=== PATIENT | male | born 1970 | race Caucasian/White ===

== ENCOUNTER 2017-06-03 18:22 | Inpatient (IN) | payer BC ==
[2017-06-03] MEDS ORDERED: Lactated Ringers 1,000 ML IV ONE ×2 (18:43→18:55)
[2017-06-03] MEDS ORDERED: Zofran 4 MG/2 ML VIAL IV ONE ×2 (18:59→23:26)
[2017-06-03] MEDS ORDERED: SUBLIMAZE 100 MCG/2 ML IV ONE ×3 (18:59→23:26)
[2017-06-03 19:03] LABS: Granulocyte Absolute (ANC) 17.24 (1.4-6.9); Hematocrit 53.3 % (42-50); Hemoglobin 19.9 gm/dl (12.5-18.0); Mean Cell Volume 82.6 fl (78-100); Mean Corpuscular Hgb Concent. 37.3 g/dl (32-36); Mean Platelet Volume 11.6 fl (6-9.5); Platelet Count 238 K/mm3 (150-450); Red Blood Count 6.45 M/mm3 (4.1-5.6); Red Cell Distribution Width 13.6 % (11.5-14.0); White Blood Count 19.1 K/mm3 (4.0-10.5)
[2017-06-03] MEDS ORDERED: SUBLIMAZE 100 MCG/2 ML ONE ×3 (19:06→23:28)
[2017-06-03] MEDS ORDERED: Zofran 4 MG/2 ML VIAL ONE ×2 (19:06→23:28)
--- NOTE | 2017-06-03 19:27 | ERPHSYRPT ---
- History of Present Illness Time Seen by Provider: 06/03/17 18:55 Source: patient Exam Limitations: no limitations Patient Subjective Stated Complaint: PT REPORTS VOMITING SUNDAY-REPORTS HE CAN NOT HOLD WATER DOWN-REPORTS HIS SUGARS HAVE BEEN RUNNING HIGH-DENIES DIARRHEA- REPORTS ABD SORENESS-DENIES FEVER-REPORTS FEELING SOB Triage Nursing Assessment: PT FLUSHED PALE ET DRY UPON ARRIVAL-RESP SLIGHTLY LABORED-NO RETRACTIONS NOTED-ABD TENDER TO PALP Physician History: FOR THE PAST 3 DAYS PT HAS HAD VOMITING OVER 20 TIMES WITHOUT BLOOD, SHORTNESS OF AIR, LOWER MID ANTERIOR CHEST DISCOMFORT AFTER VOMITING AND INTERMITTENT CRAMPING/ACHY LOWER ABDOMINAL PAIN LASTING UP TO 15 MINUTES PER EPISODE. LAST BM WAS THIS AM AND WNL. Allergies/Adverse Reactions: No Known Drug Allergies Allergy (Unverified 06/03/17 18:49) Home Medications: Alprazolam 0.5 mg [xanAX 0.5 MG] 0.5 mg PO UD 06/03/17 [History] Fenofibrate Nanocrystallized [Fenofibrate] 145 mg PO DAILY 06/03/17 [History] Insulin Aspart [NovoLOG Insulin] 60 unit SQ TID 06/03/17 [History] Insulin Detemir [Levemir] 60 unit SQ BID 06/03/17 [History] Lisinopril [Lisinopril] 10 mg PO DAILY 06/03/17 [History] Hx Tetanus, Diphtheria Vaccination/Date Given: No Hx Influenza Vaccination/Date Given: No Hx Pneumococcal Vaccination/Date Given: No Immunizations Up to Date: Yes - Review of Systems Constitutional: No Fever Respiratory: Dyspnea Cardiac: Chest Pain Abdominal/Gastrointestinal: Abdominal Pain, Vomiting, No Diarrhea All Other Systems: Reviewed and Negative - Past Medical History Pertinent Past Medical History: Yes Endocrine Medical History: Diabetes Type II - Past Surgical History Past Surgical History: Yes Musculoskeletal: Orthopedic Surgery - Social History Smoking Status: Never smoker Drug Use: none Patient Lives Alone: No - Nursing Vital Signs Nursing Vital Signs: Initial Vital Signs Temperature 98.8 F 06/03/17 18:42 Pulse Rate 110 H 06/03/17 18:42 Respiratory Rate 24 06/03/17 18:42 Blood Pressure 171/93 06/03/17 18:42 O2 Sat by Pulse Oximetry 98 06/03/17 18:42 Pain Scale Pain Intensity 3 - Physical Exam General Appearance: alert Eye Exam: PERRL/EOMI Ears, Nose, Throat Exam: dry mucous membranes, pharyngeal erythema Neck Exam: normal inspection Respiratory Exam: lungs clear Cardiovascular Exam: tachycardia Gastrointestinal/Abdomen Exam: soft, tenderness (MILD LOWER ABDOMINAL TENDERNESS ; B.S. MILDLY HYPERACTIVE AND NORMOTONIC.) Back Exam: normal range of motion Extremity Exam: normal inspection, No pedal edema Neurologic Exam: alert, cooperative Skin Exam: warm, dry SpO2 Interpretation: normal SpO2: 98 Oxygen Delivery: Room Air - Course Nursing assessment & vital signs reviewed: Yes EKG Interpreted by Me: RATE (110), Sinus Tach, NORMAL AXIS, Non-specific ST Changes - Radiology Exams Chest X-ray Interpretation: Interpreted by me, No Pneumonia - CT Exams Abdomen/Pelvis CT Interpretation: Discussed w/radiologist (NO COMPS. MODERATE PANCREATITIS WITHOUT PHLEGMON. FATTY LIVER & SIGMOID DIVERTICULOSIS. REMAINING ABD/PEL NEGATIVE.) Ordered Tests: Active Orders 24 hr Category Date Time Status Marksmanship Instructor STAT Care 06/03/17 18:42 Active Clean Catch Urine Specimen STAT Care 06/03/17 18:42 Active EKG-ER Only STAT Care 06/03/17 18:42 Active IV Insertion STAT Care 06/03/17 18:42 Active ABDOMEN AND PELVIS W/0 CONTRAS [CT] Stat Exams 06/03/17 19:01 Taken CHEST 2 VIEWS (PA AND LAT) Stat Exams 06/03/17 19:01 Taken AMYLASE Stat Lab 06/03/17 18:59 Completed BMP Stat Lab 06/03/17 22:00 Results CBC W DIFF Stat Lab 06/03/17 18:42 Completed CBC W DIFF Stat Lab 06/03/17 22:00 Completed CMP Stat Lab 06/03/17 18:42 Results CULTURE, THROAT Stat Lab 06/03/17 19:35 Received Glucose,Critical Care Urgent Lab 06/03/17 19:44 Completed LIPASE Stat Lab 06/03/17 18:42 Results Lactic Acid Stat Lab 06/03/17 19:44 Completed Lactic Acid Stat Lab 06/03/17 21:43 Ordered Lactic Acid Stat Lab 06/03/17 22:25 Results MAGNESIUM Stat Lab 06/03/17 18:42 Results Manual Differential NC Stat Lab 06/03/17 18:42 Completed [place] Screen Stat Lab 06/03/17 Completed STREP SCREEN-BETA A Stat Lab 06/03/17 19:35 Completed TROPONIN Q3H Lab 06/03/17 18:45 Completed TROPONIN Q3H Lab 06/03/17 22:00 Completed TROPONIN Q3H Lab 06/04/17 00:45 Ordered TROPONIN Q3H Lab 06/04/17 00:45 Ordered TROPONIN Q3H Lab 06/04/17 03:45 Ordered TROPONIN Q3H Lab 06/04/17 03:45 Ordered TROPONIN Q3H Lab 06/04/17 06:45 Ordered TROPONIN Q3H Lab 06/04/17 06:45 Ordered TROPONIN Q3H Lab 06/04/17 09:45 Ordered UA W/ MICROSCOPIC Stat Lab 06/03/17 18:42 Completed VENOUS BLOOD GAS Urgent Lab 06/03/17 19:44 Completed Medication Summary Discontinued Medications Generic Name Dose Route Start Last Admin Trade Name Freq PRN Reason Stop Dose Admin Al Hydrox/Mg Hydrox/Simethicone Confirm 06/03/17 22:30 Maalox Es 30 Ml Unit Dose Administered 06/03/17 22:31 Dose 30 ml .ROUTE .STK-MED ONE Fentanyl Citrate 50 mcg 06/03/17 18:59 06/03/17 19:08 Sublimaze 100 Mcg/2 Ml IV 06/03/17 19:00 50 mcg STAT ONE Administration Fentanyl Citrate Confirm 06/03/17 19:06 Sublimaze 100 Mcg/2 Ml Administered 06/03/17 19:07 Dose 100 mcg .ROUTE .STK-MED ONE Fentanyl Citrate 50 mcg 06/03/17 20:56 06/03/17 21:10 Sublimaze 100 Mcg/2 Ml IV 06/03/17 20:57 50 mcg STAT ONE Administration Fentanyl Citrate Confirm 06/03/17 21:07 Sublimaze 100 Mcg/2 Ml Administered 06/03/17 21:08 Dose 100 mcg .ROUTE .STK-MED ONE Lactated Ringer's 1,000 mls @ 999 mls/hr 06/03/17 18:43 06/03/17 18:57 Lactated Ringers IV 06/03/17 19:43 999 mls/hr .Q1H1M ONE Administration Lactated Ringer's Confirm 06/03/17 18:55 Lactated Ringers Administered 06/03/17 18:56 Dose 1,000 mls @ ud IV .STK-MED ONE Sodium Chloride 1,000 mls @ 999 mls/hr 06/03/17 19:45 06/03/17 20:30 Sodium Chloride 0.9% 1000 Ml IV 06/03/17 20:45 999 mls/hr .Q1H1M STA Administration Sodium Chloride 1,000 mls @ 999 mls/hr 06/03/17 20:10 06/03/17 21:38 Sodium Chloride 0.9% 1000 Ml IV 06/03/17 21:10 999 mls/hr .Q1H1M STA Administration Sodium Chloride Confirm 06/03/17 20:16 Sodium Chloride 0.9% 1000 Ml Administered 06/03/17 20:17 Dose 1,000 mls @ ud .ROUTE .STK-MED ONE Sodium Chloride Confirm 06/03/17 21:37 Sodium Chloride 0.9% 1000 Ml Administered 06/03/17 21:38 Dose 1,000 mls @ ud .ROUTE .STK-MED ONE Insulin Human Regular 8 unit 06/03/17 20:51 06/03/17 21:12 Novolin R IV 06/03/17 20:52 8 unit STAT ONE Administration Insulin Human Regular Confirm 06/03/17 21:10 Novolin R Administered 06/03/17 21:11 Dose 8 unit .ROUTE .STK-MED ONE Lidocaine HCl Confirm 06/03/17 22:30 Xylocaine Hcl Viscous * Administered 06/03/17 22:31 Dose 15 ml .ROUTE .STK-MED ONE Magnesium Hydroxide 45 ml 06/03/17 22:26 06/03/17 22:31 Gi Cocktail 45 Ml (Maalox/Lidocaine) PO 06/03/17 22:27 45 ml STAT ONE Administration Ondansetron HCl 4 mg 06/03/17 18:59 06/03/17 19:08 Zofran 4 Mg/2 Ml Vial IV 06/03/17 19:00 4 mg STAT ONE Administration Ondansetron HCl Confirm 06/03/17 19:06 Zofran 4 Mg/2 Ml Vial Administered 06/03/17 19:07 Dose 4 mg .ROUTE .STK-MED ONE Lab/Rad Data: Laboratory Result Diagrams 06/03/17 22:00 06/03/17 22:00 Laboratory Results 06/03/17 06/03/17 06/03/17 Range/Units Unknown 22:25 22:00 WBC (4.0-10.5) K/mm3 RBC (4.1-5.6) M/mm3 Hgb (12.5-18.0) gm/dl Hct (42-50) % MCV (78-100) fl MCH (26-32) pg MCHC (32-36) g/dl RDW (11.5-14.0) % Plt Count (150-450) K/mm3 MPV (6-9.5) fl VBG pH (7.32-7.42) VBG pCO2 at Pat Temp (42-55) mm/Hg VBG pO2 at Pat Temp (25-40) mm/Hg VBG HCO3 (22-28) meq/L VBG O2 Sat (Brie) (95-100) VBG Base Excess (-2.0-2.0) VBG Hemoglobin VBG Carboxyhemoglobin (0.0-6.9) % T HGB POC Potassium (3.5-5.1) Sodium 131 L (136-145) mEq/L Potassium 3.8 (3.5-5.1) mEq/L Chloride 98 (98-107) mEq/L Carbon Dioxide 20.2 L (21-32) mEq/L Anion Gap 17.0 H (5-15) MEQ/L BUN 13 (9-20) mg/dL Creatinine Pending (0.55-1.30) mg/dl Estimated GFR Pending ML/MIN Glucose 254 H (70-110) MG/DL Lactic Acid 2.4 H (0.4-2.0) Calcium 7.9 L (8.5-10.1) mg/dL Magnesium (1.8-2.4) mg/dL Total Bilirubin (0.2-1.0) mg/dL AST (15-37) U/L ALT Alkaline Phosphatase (46-116) U/L Troponin I (0.000-0.056) ng/ml Serum Total Protein (6.4-8.2) gm/dL Albumin (3.4-5.0) g/dL Amylase (25-115) U/L Lipase (73-393) U/L Ur Collection Type Urine Color (YELLOW) Urine Appearance (CLEAR) Urine pH (5-6) Ur Specific [place] (1.005-1.025) Urine Protein (Negative) Urine Ketones (NEGATIVE) Urine Blood (0-5) Jamel/ul Urine Nitrite (NEGATIVE) Urine Bilirubin (NEGATIVE) Urine Urobilinogen (0-1) mg/dL Ur Leukocyte Esterase (NEGATIVE) Ur Epithelial Cells (FEW) /HPF Urine Bacteria (NEGATIVE) /HPF Urine Culture Reflexed (NO) Urine Glucose (NEGATIVE) mg/dL Monoscreen NEGATIVE (Negative) Influenza Type A Ag (NEGATIVE) Influenza Type B Ag (NEGATIVE) RSV (PCR) (Negative) Streptococcus Screen (Negative) Specimen Received 06/03/17 06/03/17 06/03/17 Range/Units 22:00 22:00 19:44 WBC 17.1 H (4.0-10.5) K/mm3 RBC 5.54 (4.1-5.6) M/mm3 Hgb 16.8 (12.5-18.0) gm/dl Hct 45.7 (42-50) % MCV 82.5 (78-100) fl MCH 30.3 (26-32) pg MCHC 36.8 H (32-36) g/dl RDW 13.4 (11.5-14.0) % Plt Count 233 (150-450) K/mm3 MPV 11.8 H (6-9.5) fl VBG pH 7.28 L (7.32-7.42) VBG pCO2 at Pat Temp 32 L (42-55) mm/Hg VBG pO2 at Pat Temp 50 H (25-40) mm/Hg VBG HCO3 15.0 L* (22-28) meq/L VBG O2 Sat (Brie) 92.2 L (95-100) VBG Base Excess -10.4 L (-2.0-2.0) VBG Hemoglobin 17.1 VBG Carboxyhemoglobin 4.3 (0.0-6.9) % T HGB POC Potassium 3.6 (3.5-5.1) Sodium (136-145) mEq/L Potassium (3.5-5.1) mEq/L Chloride (98-107) mEq/L Carbon Dioxide (21-32) mEq/L Anion Gap (5-15) MEQ/L BUN (9-20) mg/dL Creatinine (0.55-1.30) mg/dl Estimated GFR ML/MIN Glucose 331 H (70-110) MG/DL Lactic Acid (0.4-2.0) Calcium (8.5-10.1) mg/dL Magnesium (1.8-2.4) mg/dL Total Bilirubin (0.2-1.0) mg/dL AST (15-37) U/L ALT Alkaline Phosphatase (46-116) U/L Troponin I < 0.017 (0.000-0.056) ng/ml Serum Total Protein (6.4-8.2) gm/dL Albumin (3.4-5.0) g/dL Amylase (25-115) U/L Lipase (73-393) U/L Ur Collection Type Urine Color (YELLOW) Urine Appearance (CLEAR) Urine pH (5-6) Ur Specific [place] (1.005-1.025) Urine Protein (Negative) Urine Ketones (NEGATIVE) Urine Blood (0-5) Jamel/ul Urine Nitrite (NEGATIVE) Urine Bilirubin (NEGATIVE) Urine Urobilinogen (0-1) mg/dL Ur Leukocyte Esterase (NEGATIVE) Ur Epithelial Cells (FEW) /HPF Urine Bacteria (NEGATIVE) /HPF Urine Culture Reflexed (NO) Urine Glucose (NEGATIVE) mg/dL Monoscreen (Negative) Influenza Type A Ag (NEGATIVE) Influenza Type B Ag (NEGATIVE) RSV (PCR) (Negative) Streptococcus Screen (Negative) Specimen Received 06/03/17 06/03/17 06/03/17 Range/Units 19:44 19:35 19:35 WBC (4.0-10.5) K/mm3 RBC (4.1-5.6) M/mm3 Hgb (12.5-18.0) gm/dl Hct (42-50) % MCV (78-100) fl MCH (26-32) pg MCHC (32-36) g/dl RDW (11.5-14.0) % Plt Count (150-450) K/mm3 MPV (6-9.5) fl VBG pH (7.32-7.42) VBG pCO2 at Pat Temp (42-55) mm/Hg VBG pO2 at Pat Temp (25-40) mm/Hg VBG HCO3 (22-28) meq/L VBG O2 Sat (Brie) (95-100) VBG Base Excess (-2.0-2.0) VBG Hemoglobin VBG Carboxyhemoglobin (0.0-6.9) % T HGB POC Potassium (3.5-5.1) Sodium (136-145) mEq/L Potassium (3.5-5.1) mEq/L Chloride (98-107) mEq/L Carbon Dioxide (21-32) mEq/L Anion Gap (5-15) MEQ/L BUN (9-20) mg/dL Creatinine (0.55-1.30) mg/dl Estimated GFR ML/MIN Glucose (70-110) MG/DL Lactic Acid 2.5 H (0.4-2.0) Calcium (8.5-10.1) mg/dL Magnesium (1.8-2.4) mg/dL Total Bilirubin (0.2-1.0) mg/dL AST (15-37) U/L ALT Alkaline Phosphatase (46-116) U/L Troponin I (0.000-0.056) ng/ml Serum Total Protein (6.4-8.2) gm/dL Albumin (3.4-5.0) g/dL Amylase (25-115) U/L Lipase (73-393) U/L Ur Collection Type Urine Color (YELLOW) Urine Appearance (CLEAR) Urine pH (5-6) Ur Specific [place] (1.005-1.025) Urine Protein (Negative) Urine Ketones (NEGATIVE) Urine Blood (0-5) Jamel/ul Urine Nitrite (NEGATIVE) Urine Bilirubin (NEGATIVE) Urine Urobilinogen (0-1) mg/dL Ur Leukocyte Esterase (NEGATIVE) Ur Epithelial Cells (FEW) /HPF Urine Bacteria (NEGATIVE) /HPF Urine Culture Reflexed (NO) Urine Glucose (NEGATIVE) mg/dL Monoscreen (Negative) Influenza Type A Ag NEGATIVE (NEGATIVE) Influenza Type B Ag NEGATIVE (NEGATIVE) RSV (PCR) NEGATIVE (Negative) Streptococcus Screen NEGATIVE (Negative) Specimen Received 06/03/17 06/03/17 06/03/17 Range/Units 18:59 18:45 18:42 WBC (4.0-10.5) K/mm3 RBC (4.1-5.6) M/mm3 Hgb (12.5-18.0) gm/dl Hct (42-50) % MCV (78-100) fl MCH (26-32) pg MCHC (32-36) g/dl RDW (11.5-14.0) % Plt Count (150-450) K/mm3 MPV (6-9.5) fl VBG pH (7.32-7.42) VBG pCO2 at Pat Temp (42-55) mm/Hg VBG pO2 at Pat Temp (25-40) mm/Hg VBG HCO3 (22-28) meq/L VBG O2 Sat (Brie) (95-100) VBG Base Excess (-2.0-2.0) VBG Hemoglobin VBG Carboxyhemoglobin (0.0-6.9) % T HGB POC Potassium (3.5-5.1) Sodium 125 L (136-145) mEq/L Potassium 3.9 (3.5-5.1) mEq/L Chloride 89 L (98-107) mEq/L Carbon Dioxide 15.8 L* (21-32) mEq/L Anion Gap 24.7 H (5-15) MEQ/L BUN 9 (9-20) mg/dL Creatinine 0.77 (0.55-1.30) mg/dl Estimated GFR > 60 ML/MIN Glucose 404 H (70-110) MG/DL Lactic Acid (0.4-2.0) Calcium 8.3 L (8.5-10.1) mg/dL Magnesium 1.9 (1.8-2.4) mg/dL Total Bilirubin 1.10 H (0.2-1.0) mg/dL AST 21 (15-37) U/L ALT Pending Alkaline Phosphatase 105 (46-116) U/L Troponin I < 0.017 (0.000-0.056) ng/ml Serum Total Protein 8.7 H (6.4-8.2) gm/dL Albumin 3.3 L (3.4-5.0) g/dL Amylase 181 H (25-115) U/L Lipase 1377 H (73-393) U/L Ur Collection Type Urine Color (YELLOW) Urine Appearance (CLEAR) Urine pH (5-6) Ur Specific [place] (1.005-1.025) Urine Protein (Negative) Urine Ketones (NEGATIVE) Urine Blood (0-5) Jamel/ul Urine Nitrite (NEGATIVE) Urine Bilirubin (NEGATIVE) Urine Urobilinogen (0-1) mg/dL Ur Leukocyte Esterase (NEGATIVE) Ur Epithelial Cells (FEW) /HPF Urine Bacteria (NEGATIVE) /HPF Urine Culture Reflexed (NO) Urine Glucose (NEGATIVE) mg/dL Monoscreen (Negative) Influenza Type A Ag (NEGATIVE) Influenza Type B Ag (NEGATIVE) RSV (PCR) (Negative) Streptococcus Screen (Negative) Specimen Received 06/03/17 06/03/17 Range/Units 18:42 18:42 WBC 19.1 H (4.0-10.5) K/mm3 RBC 6.45 H* (4.1-5.6) M/mm3 Hgb 19.9 H (12.5-18.0) gm/dl Hct 53.3 H (42-50) % MCV 82.6 (78-100) fl MCH 30.8 (26-32) pg MCHC 37.3 H (32-36) g/dl RDW 13.6 (11.5-14.0) % Plt Count 238 (150-450) K/mm3 MPV 11.6 H (6-9.5) fl VBG pH (7.32-7.42) VBG pCO2 at Pat Temp (42-55) mm/Hg VBG pO2 at Pat Temp (25-40) mm/Hg VBG HCO3 (22-28) meq/L VBG O2 Sat ([place]rie) (95-100) VBG Base Excess (-2.0-2.0) VBG Hemoglobin VBG Carboxyhemoglobin (0.0-6.9) % T HGB POC Potassium (3.5-5.1) Sodium (136-145) mEq/L Potassium (3.5-5.1) mEq/L Chloride (98-107) mEq/L Carbon Dioxide (21-32) mEq/L Anion Gap (5-15) MEQ/L BUN (9-20) mg/dL Creatinine (0.55-1.30) mg/dl Estimated GFR ML/MIN Glucose (70-110) MG/DL Lactic Acid (0.4-2.0) Calcium (8.5-10.1) mg/dL Magnesium (1.8-2.4) mg/dL Total Bilirubin (0.2-1.0) mg/dL AST (15-37) U/L ALT Alkaline Phosphatase (46-116) U/L Troponin I (0.000-0.056) ng/ml Serum Total Protein (6.4-8.2) gm/dL Albumin (3.4-5.0) g/dL Amylase (25-115) U/L Lipase (73-393) U/L Ur Collection Type CLEAN CATCH Urine Color YELLOW (YELLOW) Urine Appearance CLEAR (CLEAR) Urine pH 5.0 (5-6) Ur Specific [place] 1.025 (1.005-1.025) Urine Protein TRACE (Negative) Urine Ketones LARGE (NEGATIVE) Urine Blood NEGATIVE (0-5) Jamel/ul Urine Nitrite NEGATIVE (NEGATIVE) Urine Bilirubin NEGATIVE (NEGATIVE) Urine Urobilinogen NORMAL (0-1) mg/dL Ur Leukocyte Esterase NEGATIVE (NEGATIVE) Ur Epithelial Cells RARE (FEW) /HPF Urine Bacteria RARE (NEGATIVE) /HPF Urine Culture Reflexed NO (NO) Urine Glucose 500 (NEGATIVE) mg/dL Monoscreen (Negative) Influenza Type A Ag (NEGATIVE) Influenza Type B Ag (NEGATIVE) RSV (PCR) (Negative) Streptococcus Screen (Negative) Specimen Received 06/03/17 1900 - Progress Discussed with DrNina: Sukhwinder (OBS - [id number]) - Departure Time of Disposition: 23:12 Departure Disposition: Observation Clinical Impression: ACUTE PANCREATITIS, ELEVATED LACTIC ACID, DM, DEHYDRATION Condition: Stable Critical Care Time: No Referrals: SONIA MAY [Primary Care Provider] -
[2017-06-03 19:37] LABS: ALKALINE PHOSPHATASE 105 U/L (46-116); ANION GAP 24.7 MEQ/L (5-15); CHLORIDE 89 mEq/L (98-107); Calcium 8.3 mg/dL (8.5-10.1); Glucose 404 MG/DL (70-110); LIPASE 1377 U/L (73-393); MAGNESIUM 1.9 mg/dL (1.8-2.4); Potassium 3.9 mEq/L (3.5-5.1); SODIUM 125 mEq/L (136-145)
[2017-06-03 19:45] LABS: VBG BASE EXCESS -10.4 (-2.0-2.0); VBG CARBOXYHEMOGLOBIN 4.3 % T HGB (0.0-6.9); VBG HEMOGLOBIN 17.1; VBG O2 SATURATION 92.2 (95-100); VBG POTASSIUM 3.6 (3.5-5.1); VBG pH 7.28 (7.32-7.42)
[2017-06-03] MEDS ORDERED: Sodium Chloride 0.9% 1000 ML 1,000 ML IV STA ×2 (19:45→20:10)
[2017-06-03 19:47] LABS: Lactic Acid 2.5 (0.4-2.0)
[2017-06-03 20:02] LABS: ALBUMIN 3.3 g/dL (3.4-5.0); BLOOD UREA NITROGEN 9 mg/dL (9-20)
[2017-06-03 20:06] LABS: Mean Corpuscular Hemoglobin 30.8 pg (26-32)
[2017-06-03 20:16] LABS: Creatinine 1 0.77 mg/dl (0.55-1.30); EST GLOMERULAR FILTRATION RATE > 60 ML/MIN; Total Protein 8.7 gm/dL (6.4-8.2)
[2017-06-03] MEDS ORDERED: Sodium Chloride 0.9% 1000 ML 1,000 ML ONE ×2 (20:16→21:37)
[2017-06-03 20:41] LABS: SGOT/AST 21 U/L (15-37)
[2017-06-03 20:50] LABS: Carbon Dioxide 15.8 mEq/L (21-32)
[2017-06-03] MEDS ORDERED: NovoLIN R IV ONE (20:51)
[2017-06-03] MEDS ORDERED: NovoLIN R ONE (21:10)
[2017-06-03 21:22] LABS: INFLUENZA A NEGATIVE (NEGATIVE); INFLUENZA B NEGATIVE (NEGATIVE); RESPIRATORY SYNCTIAL VIRUS NEGATIVE (Negative)
[2017-06-03 21:41] LABS: Appearance CLEAR (CLEAR); Leukocyte Esterase NEGATIVE (NEGATIVE); Nitrite NEGATIVE (NEGATIVE); Specific Gravity 1.025 (1.005-1.025)
[2017-06-03 21:42] LABS: Bacteria RARE /HPF (NEGATIVE); Bilirubin NEGATIVE (NEGATIVE); Blood NEGATIVE Ery/ul (0-5); Epithelial Cells RARE /HPF (FEW); Glucose 500 mg/dL (NEGATIVE); Ketones LARGE (NEGATIVE); Protein,Urine Dip TRACE (Negative); Urobilinogen NORMAL mg/dL (0-1)
[2017-06-03 22:06] LABS: Granulocyte Absolute (ANC) 14.74 (1.4-6.9); Hematocrit 45.7 % (42-50); Hemoglobin 16.8 gm/dl (12.5-18.0); Mean Cell Volume 82.5 fl (78-100); Mean Corpuscular Hemoglobin 30.3 pg (26-32); Mean Corpuscular Hgb Concent. 36.8 g/dl (32-36); Mean Platelet Volume 11.8 fl (6-9.5); Platelet Count 233 K/mm3 (150-450); Red Blood Count 5.54 M/mm3 (4.1-5.6); Red Cell Distribution Width 13.4 % (11.5-14.0); White Blood Count 17.1 K/mm3 (4.0-10.5)
[2017-06-03 22:25] LABS: Lactic Acid 2.4 (0.4-2.0)
[2017-06-03] MEDS ORDERED: GI COCKTAIL 45 ML (Maalox/Lidocaine) PO ONE (22:26)
[2017-06-03 22:28] LABS: BLOOD UREA NITROGEN 13 mg/dL (9-20); CHLORIDE 98 mEq/L (98-107); Calcium 7.9 mg/dL (8.5-10.1); Carbon Dioxide 20.2 mEq/L (21-32); Glucose 254 MG/DL (70-110); Potassium 3.8 mEq/L (3.5-5.1); SODIUM 131 mEq/L (136-145)
[2017-06-03] MEDS ORDERED: XYLOCAINE HCl Viscous ONE (22:30)
[2017-06-03] MEDS ORDERED: MAALOX ES 30 ML UNIT DOSE ONE (22:30)
[2017-06-04] LABS: Creatinine 1 0.65 mg/dl (0.55-1.30); EST GLOMERULAR FILTRATION RATE > 60 ML/MIN
[2017-06-04] MEDS ORDERED: NovoLOG Insulin SQ PRN (00:04)
[2017-06-04] MEDS ORDERED: Zofran 4 MG/2 ML VIAL IV PRN (00:04)
[2017-06-04] MEDS ORDERED: MORPHINE SULFATE 4 MG INJ IV PRN (00:04)
[2017-06-04] MEDS: Sodium Chloride 0.9% 1000 ML 1,000 ML IV SCH ×4 (00:31→18:49)
[2017-06-04 01:10] LABS: SGPT/ALT 15 U/L (12-78)
[2017-06-04] MEDS ORDERED: Phenergan 25 MG INJ IV PRN (01:23)
[2017-06-04] MEDS: Zofran 4 MG/2 ML VIAL IV PRN ×3 (01:27→10:54)
[2017-06-04 01:49] LABS: BAND 4 % (0.0-2.0); Eosinophil 1 % (0.00-3.0); Lymphocytes 8 % (24-44); Monocyte 5 % (0.0-12.0); Neutrophils 82 % (36.-66.); Total Cells Counted 100
[2017-06-04 01:50] LABS: Platelet Estimate NORMAL (NORMAL)
[2017-06-04 05:37] LABS: Granulocyte Absolute (ANC) 10.69 (1.4-6.9); Hematocrit 44.6 % (42-50); Hemoglobin 15.9 gm/dl (12.5-18.0); Mean Cell Volume 83.1 fl (78-100); Mean Corpuscular Hemoglobin 29.6 pg (26-32); Mean Corpuscular Hgb Concent. 35.7 g/dl (32-36); Mean Platelet Volume 11.9 fl (6-9.5); Platelet Count 184 K/mm3 (150-450); Red Blood Count 5.37 M/mm3 (4.1-5.6); Red Cell Distribution Width 13.3 % (11.5-14.0); White Blood Count 12.7 K/mm3 (4.0-10.5)
[2017-06-04] MEDS ORDERED: MORPHINE SULFATE 2 MG INJ ONE (05:44)
[2017-06-04 06:11] LABS: ALKALINE PHOSPHATASE 73 U/L (46-116); AMYLASE 98 U/L (25-115); ANION GAP 17.4 MEQ/L (5-15); BLOOD UREA NITROGEN 13 mg/dL (9-20); CHLORIDE 100 mEq/L (98-107); Calcium 7.8 mg/dL (8.5-10.1); Carbon Dioxide 19.8 mEq/L (21-32); Creatinine 1 0.76 mg/dl (0.55-1.30); EST GLOMERULAR FILTRATION RATE > 60 ML/MIN; Glucose 250 MG/DL (70-110); LIPASE 760 U/L (73-393); SODIUM 133 mEq/L (136-145)
[2017-06-04 06:28] LABS: SGOT/AST 37 U/L (15-37)
[2017-06-04] MEDS ORDERED: MORPHINE SULFATE 2 MG INJ IV PRN (06:48)
[2017-06-04 08:09] LABS: BAND 18 % (0.0-2.0); Lymphocytes 10 % (24-44); Monocyte 4 % (0.0-12.0); Neutrophils 68 % (36.-66.); Platelet Estimate NORMAL (NORMAL); Total Cells Counted 100
--- NOTE | 2017-06-04 08:23 | PCM.HP ---
History of Present Illness - Chief Complaint Chief Complaint: Acute Pancreatitis, Dehydration, Elevated Lactic Acid, DM Date: 06/04/17 History of Present Illness: is a 46 year old male. who began having left upper quadrant pain epigastric pain radiating into the back and nausea and vomiting sunday it progressively worsened and was unable to keep anything down. He thought he had the flu so was trying to drink liquids and ride it out at home but eventually the pain and vomiting became too much and he came to the ED. he does have previous hx of pancreatitis at least 2 times. He does not drink alcohol. He has not been diagnosed with gallbladder disorders in the past. he is unsure of the etiology of the pancreatitis in the past. - Review of Systems Constitutional: Chills, Fatigue, No Fever Eyes: No Symptoms Ears, Nose, & Throat: No Symptoms Respiratory: No Cough, No Short Of Breath Cardiac: No Chest Pain, No Edema, No Syncope Abdominal/Gastrointestinal: Abdominal Pain, Nausea, Vomiting, No Diarrhea Genitourinary Symptoms: No Dysuria Musculoskeletal: Back Pain, No Neck Pain Skin: No Rash Neurological: Dizziness, No Focal Weakness, No Sensory Changes Psychological: No Symptoms Endocrine: No Symptoms Hematologic/Lymphatic: No Symptoms Immunological/Allergic: No Symptoms Medications & Allergies Home Medications: Home Medication List Alprazolam 0.5 mg [xanAX 0.5 MG] 0.5 mg PO DAILY PRN PRN 06/03/17 [ History Confirmed 06/04/17] Fenofibrate Nanocrystallized [Fenofibrate] 145 mg PO DAILY 06/03/17 [History Confirmed 06/03/17] Insulin Aspart [NovoLOG Insulin] 100 unit SQ TID 06/03/17 [History Confirmed 06/04/17] Insulin Detemir [Levemir] 60 unit SQ BID 06/03/17 [History Confirmed 06/04/17] Lisinopril [Lisinopril] 10 mg PO DAILY 06/03/17 [History Confirmed 06/03/17] Atorvastatin Calcium 40 mg PO DAILY 06/04/17 [History Confirmed 06/04/17] Cyclobenzaprine HCl 10 mg [Cyclobenzaprine 10 MG] 10 mg PO DAILY PRN PRN 06/04/17 [History Confirmed 06/04/17] Naproxen Sodium 220 mg [Aleve 220 MG] 220 mg PO BID PRN PRN 06/04/17 [ History Confirmed 06/04/17] Allergies/Adverse Reactions: Allergies Allergy/AdvReac Type Severity Reaction Status Date / Time No Known Drug Allergies Allergy Unverified 06/03/17 18:49 - Past Medical History Past Medical History: Yes Endocrine Medical History: Diabetes Type II Musculoskelatal History: Other GI Medical History: Hernia, Pancreatitis Comment: 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 - Past Surgical History Past Surgical History: Yes Musculskeletal Surgical Hx: Orthopedic Surgery Other Surgical History: Surgery R foot, fxs - Social History Smoking Status: Former smoker Alcohol: None Drug Use: none - Physical Exam Vital Signs: Vital Signs - 24 hr Temp Pulse Resp BP Pulse Ox 06/04/17 07:49 98.9 F 91 H 20 124/74 96 06/04/17 04:00 99.0 F 94 H 18 149/90 96 06/04/17 00:36 99.6 F 99 H 20 124/77 92 L 06/03/17 23:59 99.6 F 99 H 20 124/77 92 L 06/03/17 23:12 98 06/03/17 21:50 103 H 06/03/17 21:40 103 H 16 123/77 06/03/17 20:50 103 H 12 143/86 06/03/17 20:33 107 H 16 143/86 06/03/17 19:50 105 H 16 149/87 94 L 06/03/17 19:13 112 H 16 138/92 06/03/17 18:42 98.8 F 110 H 24 171/93 98 General Appearance: mild distress, alert Neurologic Exam: alert, oriented x 3, cooperative, normal mood/affect, nml cerebellar function, sensation nml, No motor deficits Eye Exam: PERRL/EOMI, eyes nml inspection Ears, Nose, Throat Exam: normal ENT inspection, pharynx normal, moist mucous membranes Neck Exam: normal inspection, non-tender, supple, full range of motion Respiratory Exam: normal breath sounds, lungs clear, No respiratory distress Cardiovascular Exam: regular rate/rhythm, normal heart sounds, normal peripheral pulses Gastrointestinal/Abdomen Exam: soft, normal bowel sounds, tenderness ( epigastric and left upper quadrant), No distention, No mass, No guarding Back Exam: No CVA tenderness, No vertebral tenderness Extremity Exam: normal inspection, normal range of motion Skin Exam: normal color, warm, dry, No rash Lymphatic Exam: No adenopathy Results - Labs Lab/Micro Results: Accuchecks Date 06/04/17 Time 07:02 Accucheck Value: 210 Lab Results-Last 24 Hours 06/03/17 06/04/17 06/04/17 Range/Units Unknown 00:45 04:00 WBC (4.0-10.5) K/mm3 RBC (4.1-5.6) M/mm3 Hgb (12.5-18.0) gm/dl Hct (42-50) % MCV (78-100) fl MCH (26-32) pg MCHC (32-36) g/dl RDW (11.5-14.0) % Plt Count (150-450) K/mm3 MPV (6-9.5) fl Segmented Neutrophils (36.-66.) % Band Neutrophils (0.0-2.0) % Lymphocytes (Manual) (24-44) % Monocytes (Manual) (0.0-12.0) % Differential Comment Platelet Estimate (NORMAL) Sodium (136-145) mEq/L Potassium (3.5-5.1) mEq/L Chloride (98-107) mEq/L Carbon Dioxide (21-32) mEq/L Anion Gap (5-15) MEQ/L BUN (9-20) mg/dL Creatinine (0.55-1.30) mg/dl Estimated GFR ML/MIN Glucose (70-110) MG/DL Lactic Acid (0.4-2.0) Calcium (8.5-10.1) mg/dL Total Bilirubin (0.2-1.0) mg/dL AST (15-37) U/L ALT (12-78) U/L Alkaline Phosphatase (46-116) U/L Troponin I < 0.017 < 0.017 (0.000-0.056) ng/ml Serum Total Protein (6.4-8.2) gm/dL Albumin (3.4-5.0) g/dL Amylase (25-115) U/L Lipase (73-393) U/L Monoscreen NEGATIVE (Negative) 06/04/17 06/04/17 06/04/17 Range/Units 04:00 04:00 04:54 WBC 12.7 H (4.0-10.5) K/mm3 RBC 5.37 (4.1-5.6) M/mm3 Hgb 15.9 (12.5-18.0) gm/dl Hct 44.6 (42-50) % MCV 83.1 (78-100) fl MCH 29.6 (26-32) pg MCHC 35.7 (32-36) g/dl RDW 13.3 (11.5-14.0) % Plt Count 184 (150-450) K/mm3 MPV 11.9 H (6-9.5) fl Segmented Neutrophils 68 H (36.-66.) % Band Neutrophils 18 H (0.0-2.0) % Lymphocytes (Manual) 10 L (24-44) % Monocytes (Manual) 4 (0.0-12.0) % Differential Comment NORMAL Platelet Estimate NORMAL (NORMAL) Sodium 133 L (136-145) mEq/L Potassium 4.0 (3.5-5.1) mEq/L Chloride 100 (98-107) mEq/L Carbon Dioxide 19.8 L (21-32) mEq/L Anion Gap 17.4 H (5-15) MEQ/L BUN 13 (9-20) mg/dL Creatinine 0.76 (0.55-1.30) mg/dl Estimated GFR > 60 ML/MIN Glucose 250 H (70-110) MG/DL Lactic Acid 0.9 (0.4-2.0) Calcium 7.8 L (8.5-10.1) mg/dL Total Bilirubin 0.70 (0.2-1.0) mg/dL AST 37 (15-37) U/L ALT (12-78) U/L Alkaline Phosphatase 73 (46-116) U/L Troponin I (0.000-0.056) ng/ml Serum Total Protein (6.4-8.2) gm/dL Albumin 3.0 L (3.4-5.0) g/dL Amylase 98 (25-115) U/L Lipase 760 H (73-393) U/L Monoscreen (Negative) 06/04/17 Range/Units 06:50 WBC (4.0-10.5) K/mm3 RBC (4.1-5.6) M/mm3 Hgb (12.5-18.0) gm/dl Hct (42-50) % MCV (78-100) fl MCH (26-32) pg MCHC (32-36) g/dl RDW (11.5-14.0) % Plt Count (150-450) K/mm3 MPV (6-9.5) fl Segmented Neutrophils (36.-66.) % Band Neutrophils (0.0-2.0) % Lymphocytes (Manual) (24-44) % Monocytes (Manual) (0.0-12.0) % Differential Comment Platelet Estimate (NORMAL) Sodium (136-145) mEq/L Potassium (3.5-5.1) mEq/L Chloride (98-107) mEq/L Carbon Dioxide (21-32) mEq/L Anion Gap (5-15) MEQ/L BUN (9-20) mg/dL Creatinine (0.55-1.30) mg/dl Estimated GFR ML/MIN Glucose (70-110) MG/DL Lactic Acid (0.4-2.0) Calcium (8.5-10.1) mg/dL Total Bilirubin (0.2-1.0) mg/dL AST (15-37) U/L ALT (12-78) U/L Alkaline Phosphatase (46-116) U/L Troponin I < 0.017 (0.000-0.056) ng/ml Serum Total Protein (6.4-8.2) gm/dL Albumin (3.4-5.0) g/dL Amylase (25-115) U/L Lipase (73-393) U/L Monoscreen (Negative) Accuchecks Date 06/04/17 Time 07:02 Accucheck Value: 210 - Radiology Impressions Radiology Exams & Impressions: Radiology Procedures Category Date Time Status Ultrasound Liver or Spleen [LIVER OR SPLEEN] [US] Exams 06/04/17 Ordered Routine Assessment/Plan (1) Pancreatitis Current Visit: Yes Status: Acute Qualifiers: Chronicity: acute Assessment & Plan: Complicated by mild improving with fluid rehydration and sliding scale insulin this am check gallbladder ultrasound npo iv fluids repeat vbg this am and repeat bmp will give 1/2 his home dose of lantus and continue sliding scale correction of sugars q4h his gap is improving check am lipids continue pain control afebrile currently and not on antibiotics if develops fever >100.4 check cxr, blood cultures, ua, urine cultures. Code(s): K85.90 - ACUTE PANCREATITIS WITHOUT NECROSIS OR INFECTION, UNSP (2) Diabetic ketoacidosis Current Visit: Yes Status: Acute Code(s): E13.10 - OTH DIABETES MELLITUS WITH KETOACIDOSIS WITHOUT COMA
--- NOTE | 2017-06-04 08:38 | XRAY ---
Indication: Nausea, vomiting, and tachycardia. Comparison: None PA/lateral chest hyperinflated and clear. Heart is not enlarged. Bony thorax intact with old left 5th-7th rib fractures. Impression: Nonacute chest.
--- NOTE | 2017-06-04 08:40 | XRAY ---
Indication: Nausea and vomiting. Multiple contiguous axial images obtained through the abdomen and pelvis without contrast as ordered. Comparison: None Lung bases are clear. Heart is not enlarged. Pancreatic body and tail are prominent with moderate peripancreatic stranding favoring acute pancreatitis. No walled off fluid collection or free air. Diffuse fatty liver. Noncontrasted stomach and bowel loops appear nonobstructed. Normal appendix. Minimal sigmoid diverticulosis. Remaining liver, gallbladder, spleen, adrenal glands, kidneys, ureters, bladder, and aorta appear unremarkable for noncontrast exam. Osseous structures intact with mild lower lumbar degenerative changes. Small fatty bilateral inguinal hernias. Impression: 1. CT findings favoring acute pancreatitis as detailed. 2. Fatty liver, sigmoid diverticulosis, and fatty bilateral inguinal hernias. CT DI 20.32
[2017-06-04] MEDS ORDERED: Cyclobenzaprine 10 MG PO PRN (09:27)
--- NOTE | 2017-06-04 09:31 | XRAY ---
Indication: Pancreatitis. Two-dimensional right upper quadrant abdominal sonogram performed. Comparison: None Gallbladder normally distended without gallstones, wall thickening, or pericholecystic fluid. Common bile duct measures 5.1 mm. No intrahepatic biliary distention. Diffusely fatty echogenic liver without focal solid/cystic mass or ascites. Body of the pancreas demonstrates hypoechogenicity favoring edema. No peripancreatic fluid collection. Right kidney measures 12.2 x 5.7 x 6.2 cm and appears sonographically normal. Impression: 1. Pancreatic edema favoring known pancreatitis. No suspicious fluid collection or phlegmon. 2. Diffuse fatty liver. 3. Remaining right upper quadrant sonogram is negative.
[2017-06-04] MEDS: PROTONIX 40 MG IV IV SCH (10:48)
[2017-06-04] MEDS: Lantus Insulin SQ SCH (10:50)
[2017-06-04 12:06] LABS: VBG BASE EXCESS -2.5 (-2.0-2.0); VBG CARBOXYHEMOGLOBIN 3.4 % T HGB (0.0-6.9); VBG HCO3- 22.5 meq/L (22-28); VBG HEMOGLOBIN 15.5; VBG O2 SATURATION 89.7 (95-100); VBG POTASSIUM 3.7 (3.5-5.1); VBG pH 7.37 (7.32-7.42)
[2017-06-04 12:42] LABS: ANION GAP 18.8 MEQ/L (5-15); BLOOD UREA NITROGEN 13 mg/dL (9-20); CHLORIDE 101 mEq/L (98-107); Calcium 8.1 mg/dL (8.5-10.1); Carbon Dioxide 19.3 mEq/L (21-32); Creatinine 1 0.79 mg/dl (0.55-1.30); EST GLOMERULAR FILTRATION RATE > 60 ML/MIN; Glucose 226 MG/DL (70-110); Potassium 3.7 mEq/L (3.5-5.1); SODIUM 135 mEq/L (136-145)
[2017-06-04] MEDS ORDERED: LIPITOR 40MG PO SCH (22:00)
[2017-06-05] MEDS ORDERED: TYLENOL 325 MG PO PRN (01:29)
[2017-06-05] MEDS: Sodium Chloride 0.9% 1000 ML 1,000 ML IV SCH ×4 (01:32→20:12)
[2017-06-05] MEDS: xanAX 0.5 MG PO PRN ×2 (01:40→23:20)
[2017-06-05 05:51] LABS: Hemoglobin 12.8 gm/dl (12.5-18.0); Mean Corpuscular Hgb Concent. 33.7 g/dl (32-36); Mean Platelet Volume 11.1 fl (6-9.5); Platelet Count 135 K/mm3 (150-450); Red Blood Count 4.42 M/mm3 (4.1-5.6); Red Cell Distribution Width 13.8 % (11.5-14.0); White Blood Count 8.8 K/mm3 (4.0-10.5)
[2017-06-05 06:30] LABS: ALBUMIN 2.4 g/dL (3.4-5.0); ALKALINE PHOSPHATASE 55 U/L (46-116); ANION GAP 7.8 MEQ/L (5-15); BLOOD UREA NITROGEN 11 mg/dL (9-20); CHLORIDE 106 mEq/L (98-107); Carbon Dioxide 26.3 mEq/L (21-32); Cholesterol 333 mg/dL (100-200); Creatinine 1 0.72 mg/dl (0.55-1.30); EST GLOMERULAR FILTRATION RATE > 60 ML/MIN; Glucose 143 MG/DL (70-110); HDL CHOLESTEROL 26 mg/dL (35-60); LDL, DIRECT 89 mg/dL (5-99); LIPASE 491 U/L (73-393); Potassium 3.2 mEq/L (3.5-5.1); Risk Ratio 12.8; SODIUM 137 mEq/L (136-145); Total Protein 5.9 gm/dL (6.4-8.2)
[2017-06-05 06:40] LABS: SGOT/AST 14 U/L (15-37)
[2017-06-05 07:20] LABS: SGPT/ALT < 6 U/L (12-78); TRIGLYCERIDE 741 mg/dL (30-200)
[2017-06-05] MEDS ORDERED: POTASSIUM CHLORIDE 20 mEq IN WATER 100ML 20 MEQ/100 ML BAG IV ONE (07:45)
[2017-06-05] MEDS: PROTONIX 40 MG IV IV SCH (09:50)
[2017-06-05] MEDS: Lantus Insulin SQ SCH (10:17)
--- NOTE | 2017-06-05 16:55 | PCM.NOTE ---
Date and Time: 06/05/17 1648 Subjective Assessment: much better this am no nausea or vomiting pain improving was able to sleep last night has only had ice chips thus far Objective Exam General Appearance: no apparent distress, alert Neurologic Exam: alert, oriented x 3, cooperative, normal mood/affect, nml cerebellar function, sensation nml, No motor deficits Skin Exam: normal color, warm, dry Eye Exam: PERRL, EOMI, eyes nml inspection Ears, Nose, Throat Exam: normal ENT inspection, pharynx normal, moist mucous membranes Neck Exam: normal inspection, non-tender, supple, full range of motion Respiratory Exam: normal breath sounds, lungs clear, No respiratory distress Cardiovascular Exam: regular rate/rhythm, normal heart sounds Gastrointestinal/Abdomen Exam: soft, tenderness (epigastric), No mass Extremity Exam: normal inspection, normal range of motion Back Exam: normal inspection, normal range of motion, No CVA tenderness, No vertebral tenderness Male Genitalia Exam: deferred Rectal Exam: deferred OBJECTIVE DATA Vital Signs: Vital Signs - 24 hr Temp Pulse Resp BP Pulse Ox 06/05/17 16:00 98.4 F 79 20 109/60 93 L 06/05/17 12:00 98.4 F 87 22 116/71 94 L 06/05/17 08:00 20 06/05/17 07:26 98.1 F 92 H 20 121/79 95 06/05/17 04:00 98.3 F 74 20 106/59 93 L 06/04/17 23:28 98.2 F 80 20 112/64 95 06/04/17 20:00 98.5 F 86 16 135/77 94 L Pain Assessment - Last Documented Pain Intensity 0 Pain Scale Used 0-10 Pain Scale Intake and Output: Intake & Output 06/03/17 06/04/17 06/05/17 06/06/17 11:59 11:59 11:59 11:59 Intake Total 3515 Output Total 2024 Balance 1490 Weight 92.5 kg Lab Results: Accuchecks Date 06/05/17 Date 06/05/17 Date 06/04/17 Time 11:00 Time 07:30 Time 19:00 Accucheck Value: 151 Accucheck Value: 114 Accucheck Value: 124 Accucheck Value: 149 Accucheck Value: 174 Lab Results-Last 24 Hours 06/05/17 06/05/1718 Range/Units 05:38 05:38 14:05 WBC 8.8 (4.0-10.5) K/mm3 RBC 4.42 (4.1-5.6) M/mm3 Hgb 12.8 (12.5-18.0) gm/dl Hct 38.0 L (42-50) % MCV 86.0 (78-100) fl MCH 29.0 (26-32) pg MCHC 33.7 (32-36) g/dl RDW 13.8 (11.5-14.0) % Plt Count 135 L (150-450) K/mm3 MPV 11.1 H (6-9.5) fl Sodium 137 (136-145) mEq/L Potassium 3.2 L 3.4 L (3.5-5.1) mEq/L Chloride 106 (98-107) mEq/L Carbon Dioxide 26.3 (21-32) mEq/L Anion Gap 7.8 (5-15) MEQ/L BUN 11 (9-20) mg/dL Creatinine 0.72 (0.55-1.30) mg/dl Estimated GFR > 60 ML/MIN Glucose 143 H (70-110) MG/DL Calcium 8.0 L (8.5-10.1) mg/dL Total Bilirubin 0.30 (0.2-1.0) mg/dL AST 14 L (15-37) U/L ALT < 6 L (12-78) U/L Alkaline Phosphatase 55 (46-116) U/L Serum Total Protein 5.9 L (6.4-8.2) gm/dL Albumin 2.4 L (3.4-5.0) g/dL Triglycerides 741 H (30-200) mg/dL Cholesterol 333 H (100-200) mg/dL LDL Cholesterol 89 (5-99) mg/dL HDL Cholesterol 26 L (35-60) mg/dL Heart Disease Risk Ratio 12.8 Lipase 491 H (73-393) U/L Multi-Disciplinary Progress Notes: Multi-Disciplinary Progress Notes 06/05/17 10:15 (created 06/05/17 13:16) Case Management Note by Rosie Oconnor PLAN TO RETURN HOME TO PRE EPISODIC LEVEL OF [facility]. DECLINED ADDNL NEEDS FOR DISCHARGE. INDEPENDENT WITH ALL ADL'S. Initialized on 06/05/17 13:16 - END OF NOTE Assessment/Plan (1) Pancreatitis Current Visit: Yes Status: Acute Qualifiers: Chronicity: acute Assessment & Plan: secondary to hypertriglyceridemia will hold the statin for now and start the fibrate again while here on discharge will need close f/u and titration of triglyceride lowering therapy with diet may also need nicotinic acid or omega 3 depending on levels last check prior to hospitalizaiton in March was >1000 the level here was while he had been npo for several days basically and still > 700 Code(s): K85.90 - ACUTE PANCREATITIS WITHOUT NECROSIS OR INFECTION, UNSP (2) Diabetic ketoacidosis Current Visit: Yes Status: Resolved Code(s): E13.10 - OTH DIABETES MELLITUS WITH KETOACIDOSIS WITHOUT COMA (3) Type 2 diabetes mellitus Current Visit: Yes Status: Chronic (4) Hypertriglyceridemia Current Visit: Yes Status: Chronic Code(s): E78.1 - PURE HYPERGLYCERIDEMIA
[2017-06-05] MEDS ORDERED: Tricor 145 MG PO SCH (22:00)
[2017-06-05] MEDS ORDERED: ZOCOR 20MG PO SCH (22:00)
[2017-06-05] MEDS ORDERED: Lantus Insulin SQ SCH (22:00)
[2017-06-06 05:24] VITALS: O2SAT 96
[2017-06-06] MEDS: Sodium Chloride 0.9% 1000 ML 1,000 ML IV SCH (05:49)
[2017-06-06 06:19] LABS: BASOPHIL % 0.2 % (0.0-0.4); Basophil (Absolute #) 0.01 (0-0.4); Eosinophil % 1.7 % (0.00-5.0); Eosinophil (Absolute #) 0.11 (0-0.5); Granulocyte Absolute (ANC) 4.15 (1.4-6.9); Granulocytes % 62.6 % (36.0-66.0); Hematocrit 35.6 % (42-50); Hemoglobin 11.8 gm/dl (12.5-18.0); Lymphocyte (Absolute #) 1.73 (1.0-4.6); Lymphocytes % 26.1 % (24.0-44.0); Mean Cell Volume 87.3 fl (78-100); Mean Corpuscular Hemoglobin 28.9 pg (26-32); Mean Corpuscular Hgb Concent. 33.1 g/dl (32-36); Mean Platelet Volume 11.5 fl (6-9.5); Monocyte (Absolute #) 0.62 (0.0-1.3); Monocytes % 9.4 % (0.0-12.0); Platelet Count 140 K/mm3 (150-450); Red Blood Count 4.08 M/mm3 (4.1-5.6); Red Cell Distribution Width 13.8 % (11.5-14.0); White Blood Count 6.6 K/mm3 (4.0-10.5)
[2017-06-06 07:09] VITALS: BP 120/69; PULSE 68
[2017-06-06 07:37] LABS: ALBUMIN 2.3 g/dL (3.4-5.0); ALKALINE PHOSPHATASE 55 U/L (46-116); ANION GAP 9.4 MEQ/L (5-15); BLOOD UREA NITROGEN 7 mg/dL (9-20); CHLORIDE 107 mEq/L (98-107); Calcium 8.1 mg/dL (8.5-10.1); Carbon Dioxide 27.5 mEq/L (21-32); Creatinine 1 0.66 mg/dl (0.55-1.30); EST GLOMERULAR FILTRATION RATE > 60 ML/MIN; LIPASE 227 U/L (73-393); Potassium 3.1 mEq/L (3.5-5.1); SGOT/AST 15 U/L (15-37); SGPT/ALT 18 U/L (12-78); SODIUM 141 mEq/L (136-145); Total Protein 5.9 gm/dL (6.4-8.2)
[2017-06-06 07:39] LABS: Glucose 153 MG/DL (70-110)
[2017-06-06] MEDS ORDERED: Klor Con 10 MEQ PO ONE (08:00)
--- NOTE | 2017-06-06 08:01 | PCM.DS ---
Discharge Summary Date of Admission: 06/04/17 08:18 Admitting Physician: SONIA MAY Primary Care Provider: SONIA MAY Allergies Allergies No Known Drug Allergies Allergy (Unverified 06/03/17 18:49) Hospital Summary - Vitals & Intake/Output Vital Signs: Vital Signs Temperature 98.5 F 06/06/17 07:08 Pulse Rate 68 06/06/17 07:08 Respiratory Rate 18 06/06/17 07:08 Blood Pressure 120/69 06/06/17 07:08 O2 Sat by Pulse Oximetry 96 06/06/17 07:08 Intake & Output: Intake & Output 06/03/17 06/04/17 06/05/17 06/06/17 11:59 11:59 11:59 11:59 Intake Total 3515 4506 Output Total 2025 1200 Balance 1490 3306 Weight 92.5 kg 100.9 kg - Lab Result Diagrams: 06/06/17 05:25 06/06/17 05:25 Lab Results-Last 24 Hrs: Accuchecks Date 06/06/17 Date 06/05/17 Date 06/06/17 Date 06/05/17 Date 06/05/17 Time 03:00 Time 23:00 Time 19:00 Time 16:30 Time 11:00 Accucheck Value: 130 Accucheck Value: 138 Accucheck Value: 138 Accucheck Value: 150 Accucheck Value: 151 Lab Results-Last 24 Hours 06/05/17 06/06/17 06/06/17 Range/Units 14:05 05:25 05:25 WBC 6.6 (4.0-10.5) K/mm3 RBC 4.08 L (4.1-5.6) M/mm3 Hgb 11.8 L (12.5-18.0) gm/dl Hct 35.6 L (42-50) % MCV 87.3 (78-100) fl MCH 28.9 (26-32) pg MCHC 33.1 (32-36) g/dl RDW 13.8 (11.5-14.0) % Plt Count 140 L (150-450) K/mm3 MPV 11.5 H (6-9.5) fl Gran % 62.6 (36.0-66.0) % Lymphocytes % 26.1 (24.0-44.0) % Monocytes % 9.4 (0.0-12.0) % Eosinophils % 1.7 (0.00-5.0) % Basophils % 0.2 (0.0-0.4) % Basophils # 0.01 (0-0.4) Sodium 141 (136-145) mEq/L Potassium 3.4 L 3.1 L (3.5-5.1) mEq/L Chloride 107 (98-107) mEq/L Carbon Dioxide 27.5 (21-32) mEq/L Anion Gap 9.4 (5-15) MEQ/L BUN 7 L (9-20) mg/dL Creatinine 0.66 (0.55-1.30) mg/dl Estimated GFR > 60 ML/MIN Glucose 153 H (70-110) MG/DL Calcium 8.1 L (8.5-10.1) mg/dL Total Bilirubin 0.20 (0.2-1.0) mg/dL AST 15 (15-37) U/L ALT 18 (12-78) U/L Alkaline Phosphatase 55 (46-116) U/L Serum Total Protein 5.9 L (6.4-8.2) gm/dL Albumin 2.3 L (3.4-5.0) g/dL Lipase 227 (73-393) U/L Micro Results-Entire Visit: Accuchecks Date 06/06/17 Date 06/05/17 Date 06/06/17 Date 06/05/17 Date 06/05/17 Time 03:00 Time 23:00 Time 19:00 Time 16:30 Time 11:00 Accucheck Value: 130 Accucheck Value: 138 Accucheck Value: 138 Accucheck Value: 150 Accucheck Value: 151 Final Diagnosis/Problem List - Final Discharge Diagnosis/Problem (1) Pancreatitis Current Visit: Yes Status: Acute (2) Diabetic ketoacidosis Current Visit: Yes Status: Resolved (3) Type 2 diabetes mellitus Current Visit: Yes Status: Chronic (4) Hypertriglyceridemia Current Visit: Yes Status: Chronic - Discharge Discharge Date: 06/06/17 Disposition: Home, Self-Care Condition: Stable Prescriptions: [place]-3 Fatty Acids/Fish Oil [Fish Oil 1,000 mg Capsule] 1 each PO TID #90 capsule Continue Insulin Aspart [NovoLOG Insulin] 100 unit SQ TID Lisinopril 10 mg PO DAILY Fenofibrate Nanocrystallized [Fenofibrate] 145 mg PO DAILY Alprazolam 0.5 mg [xanAX 0.5 MG] 0.5 mg PO DAILY PRN PRN PRN Reason: Insomnia Insulin Detemir [Levemir] 60 unit SQ BID Cyclobenzaprine HCl 10 mg [Cyclobenzaprine 10 MG] 10 mg PO DAILY PRN PRN PRN Reason: Migraines Naproxen Sodium 220 mg [Aleve 220 MG] 220 mg PO BID PRN PRN PRN Reason: Pain Atorvastatin Calcium 40 mg PO DAILY Follow up with: SONIA MAY [Primary Care Provider] -
== END 2017-06-06 09:13 | disposition home or self-care (01) | DRG 438 ==
LOC: ED 18:22 → MED SURG 23:52 → OBSVTOIN 06-04 08:18
PROVIDERS: ADMIT Family Medicine; ATTEND Family Medicine
DX: K85.90 Acute pancreatitis without necrosis or infection, unspecified (principal); E11.10 Type 2 diabetes mellitus with ketoacidosis without coma; Z79.4 Long term (current) use of insulin; E78.1 Pure hyperglyceridemia; G47.00 Insomnia, unspecified; Z87.891 Personal history of nicotine dependence
CPT/HCPCS: 36000; 36415; 71046; 74176; 76705; 80048; 80053; 80061; 81000; 82150; 82805; 82947; 82962; 83605; 83690; 83721; 83735; 84132; 84484; 85025; 85027; 86308; 87070; 87430; 87631; 93005; 93041; 96372; 96374; 96375; 99285; J2270; J2405; J3010; J3480; A9270-GY

== ENCOUNTER 2017-11-15 17:12 | Emergency (ER) | payer BC ==
[2017-11-15] MEDS ORDERED: SUBLIMAZE 100 MCG/2 ML IV ONE (17:51)
[2017-11-15] MEDS ORDERED: Sodium Chloride 0.9% 1000 ML 1,000 ML IV STA ×2 (17:51→19:22)
[2017-11-15] MEDS ORDERED: Zofran 4 MG/2 ML VIAL IV ONE (17:51)
[2017-11-15] MEDS ORDERED: Pepcid 20 MG VIAL IV ONE ×2 (17:51→17:55)
[2017-11-15] MEDS ORDERED: Zofran 4 MG/2 ML VIAL ONE (17:55)
[2017-11-15] MEDS ORDERED: SUBLIMAZE 100 MCG/2 ML ONE (17:56)
[2017-11-15] MEDS ORDERED: Sodium Chloride 0.9% 1000 ML 1,000 ML ONE ×2 (17:56→19:24)
--- NOTE | 2017-11-15 17:58 | ERPHSYRPT ---
- History of Present Illness Historian: patient Exam Limitations: no limitations Patient Subjective Stated Complaint: PAIN TO RIGHT UPPER BELLY THAT GOES INTO BACK HX PANCREATITIS. DENIES NAUSEA/VOMITING Triage Nursing Assessment: ALERT AND ORIENTED RESTLESS AND PACING. STATES PAIN TO RIGHT UPPER QUAD THAT RADIATES TO BACK. HAS HX PANCREATITIS AND THIS SEEMS FAMILIAR. DENIES DRINKING DENIES NAUSE/VOMITING.. STARTED YESTERDAY. DECREASED APPETITE. ABDOMEN SOFT BUT TENDER TO PALP. Timing/Duration: hour(s) (5) Activities at Onset: none Quality: cramping, sharpness Abdominal Pain Onset Location: RUQ, LUQ, epigastric Pain Radiation: back Severity of Pain-Max: severe Severity of Pain-Current: severe Modifying Factors: Improves With: eating Associated Symptoms: nausea Previous symptoms: same symptoms as today Hx Tetanus, Diphtheria Vaccination/Date Given: No Hx Influenza Vaccination/Date Given: No Hx Pneumococcal Vaccination/Date Given: No Immunizations Up to Date: Yes <SHADI ARANA - Last Filed: 11/15/17 19:06> <SAVANNA GALLARDO - Last Filed: 11/15/17 20:14> - History of Present Illness Time Seen by Provider: 11/15/17 17:20 Physician History: Pt started c/o diffuse upper abdominal pain, radiating to his back since this afternoon. He is nauseated, but denies vomiting, no fever, chills, diarrhea, rather constipated, no urinary complaints. He has been diagnosed with Hyperlipidaemia, and treated with Pancreatitis here few months aago. (SHADI ARANA) Allergies/Adverse Reactions: No Known Drug Allergies Allergy (Verified 11/15/17 17:42) Home Medications: Alprazolam 0.5 mg [xanAX 0.5 MG] 0.5 mg PO DAILY PRN PRN 06/03/17 [History ] Fenofibrate Nanocrystallized [Fenofibrate] 145 mg PO DAILY 06/03/17 [History] Insulin Aspart [NovoLOG Insulin] 100 unit SQ TID 06/03/17 [History] Insulin Detemir [Levemir] 60 unit SQ BID 06/03/17 [History] Lisinopril 10 mg PO DAILY 06/03/17 [History] Atorvastatin Calcium 40 mg PO DAILY 06/04/17 [History] Cyclobenzaprine HCl 10 mg [Cyclobenzaprine 10 MG] 10 mg PO DAILY PRN PRN 06/04/17 [History] Naproxen Sodium 220 mg [Aleve 220 MG] 220 mg PO BID PRN PRN 06/04/17 [ History] - Review of Systems Constitutional: No Symptoms Abdominal/Gastrointestinal: Abdominal Pain, Nausea, Constipation All Other Systems: Reviewed and Negative <SHADI ARANA Filed: 11/15/17 19:06> - Past Medical History Pertinent Past Medical History: Yes Endocrine Medical History: Diabetes Type II Musculoskeletal History: Other GI Medical History: Hernia, Pancreatitis Other Medical History: 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 - Past Surgical History Past Surgical History: Yes Musculoskeletal: Orthopedic Surgery Other Surgical History: Surgery R foot, fxs - Social History Smoking Status: Former smoker Exposure to second hand smoke: No Drug Use: none Patient Lives Alone: No <SHADI ARANA Filed: 11/15/17 19:06> - Physical Exam General Appearance: no apparent distress Eye Exam: eyes nml inspection Ears, Nose, Throat Exam: normal ENT inspection, moist mucous membranes Neck Exam: normal inspection, non-tender Respiratory Exam: normal breath sounds, lungs clear, airway intact Cardiovascular Exam: regular rate/rhythm, normal heart sounds, normal peripheral pulses, No murmur Gastrointestinal/Abdomen Exam: soft, normal bowel sounds, tenderness (diffuse, bilateral, upper abdominal), No distention, No mass, No guarding, No rebound, No organomegaly Back Exam: normal inspection, CVA tenderness (right, mild) Extremity Exam: normal inspection Neurologic Exam: alert, oriented x 3, normal mood/affect Skin Exam: normal color, warm, dry, No rash Lymphatic Exam: No adenopathy SpO2 Interpretation: normal SpO2: 98 Oxygen Delivery: Room Air <SHADI ARANA Filed: 11/15/17 19:06> - Nursing Vital Signs Nursing Vital Signs: Initial Vital Signs Temperature 97.2 F 11/15/17 17:19 Pulse Rate 81 11/15/17 17:19 Respiratory Rate 18 11/15/17 17:19 Blood Pressure 146/86 11/15/17 17:19 O2 Sat by Pulse Oximetry 98 11/15/17 17:19 Pain Scale Pain Intensity 8 <SHADI ARANA - Last Filed: 11/15/17 19:06> <SAVANNA GALLARDO - Last Filed: 11/15/17 20:14> Ordered Tests: Active Orders 24 hr Category Date Time Status IV Insertion STAT Care 11/15/17 17:51 Active ABDOMEN AND PELVIS W CONTRAST [CT] Stat Exams 11/15/17 17:54 Taken AMYLASE Stat Lab 11/15/17 18:05 Completed CBC W DIFF Stat Lab 11/15/17 18:05 Completed CMP Stat Lab 11/15/17 18:05 Completed LIPASE Stat Lab 11/15/17 18:05 Completed Lactic Acid Stat Lab 11/15/17 18:00 Completed Manual Differential NC Stat Lab 11/15/17 18:05 Completed UA W/RFX UR CULTURE Stat Lab 11/15/17 18:00 Completed Urine Triage Profile Stat Lab 11/15/17 18:00 Completed Medication Summary Generic Name Dose Route Start Last Admin Trade Name Freq PRN Reason Stop Dose Admin Sodium Chloride 1,000 mls @ 999 mls/hr 11/15/17 19:22 11/15/17 19:26 Sodium Chloride 0.9% 1000 Ml IV 11/15/17 20:22 999 mls/hr .Q1H1M STA Administration Discontinued Medications Generic Name Dose Route Start Last Admin Trade Name Freq PRN Reason Stop Dose Admin Famotidine 20 mg 11/15/17 17:51 11/15/17 17:58 Pepcid 20 Mg Vial IV 11/15/17 17:52 20 mg STAT ONE Administration Famotidine Confirm 11/15/17 17:55 Pepcid 20 Mg Vial Administered 11/15/17 17:56 Dose 20 mg IV .STK-MED ONE Fentanyl Citrate 50 mcg 11/15/17 17:51 11/15/17 17:59 Sublimaze 100 Mcg/2 Ml IV 11/15/17 17:52 50 mcg STAT ONE Administration Fentanyl Citrate Confirm 11/15/17 17:56 Sublimaze 100 Mcg/2 Ml Administered 11/15/17 17:57 Dose 100 mcg .ROUTE .STK-MED ONE Hydromorphone HCl 1 mg 11/15/17 19:48 Hydromorphone 1 Mg/Ml Ampule IV 11/15/17 19:49 STAT ONE Hydromorphone HCl Confirm 11/15/17 19:54 Dilaudid 2 Mg Injection Administered 11/15/17 19:55 Dose 2 mg .ROUTE .STK-MED ONE Sodium Chloride 1,000 mls @ 999 mls/hr 11/15/17 17:51 11/15/17 17:59 Sodium Chloride 0.9% 1000 Ml IV 11/15/17 18:51 999 mls/hr .Q1H1M STA Administration Sodium Chloride Confirm 11/15/17 17:56 Sodium Chloride 0.9% 1000 Ml Administered 11/15/17 17:57 Dose 1,000 mls @ ud .ROUTE .STK-MED ONE Sodium Chloride Confirm 11/15/17 19:24 Sodium Chloride 0.9% 1000 Ml Administered 11/15/17 19:25 Dose 1,000 mls @ ud .ROUTE .STK-MED ONE Ondansetron HCl 4 mg 11/15/17 17:51 11/15/17 17:58 Zofran 4 Mg/2 Ml Vial IV 11/15/17 17:52 4 mg STAT ONE Administration Ondansetron HCl Confirm 11/15/17 17:55 Zofran 4 Mg/2 Ml Vial Administered 11/15/17 17:56 Dose 4 mg .ROUTE .STK-MED ONE Lab/Rad Data: Laboratory Result Diagrams 11/15/17 18:05 11/15/17 18:05 Laboratory Results 11/15/17 11/15/17 11/15/17 Range/Units 18:05 18:05 18:00 WBC 10.3 (4.0-10.5) K/mm3 RBC 5.35 (4.1-5.6) M/mm3 Hgb 18.8 H (12.5-18.0) gm/dl Hct 44.4 (42-50) % MCV 83.0 (78-100) fl MCH 35.1 H (26-32) pg MCHC 42.3 H (32-36) g/dl RDW 12.7 (11.5-14.0) % Plt Count 162 (150-450) K/mm3 MPV 11.4 H (6-9.5) fl Absolute Granulocytes 6.95 H (1.4-6.9) Sodium 136 L (137-145) mmol/L Potassium 3.7 (3.5-5.1) mmol/L Chloride 102 (98-107) mmol/L Carbon Dioxide 18 L (22-30) mmol/L Anion Gap 19.4 H (5-15) MEQ/L BUN 13 (9-20) mg/dL Creatinine 0.57 L (0.66-1.25) mg/dL Estimated GFR > 60.0 ML/MIN Glucose 164 H (74-106) mg/dL Lactic Acid (0.4-2.0) Calcium 8.1 L (8.4-10.2) mg/dL Total Bilirubin 0.50 (0.2-1.3) mg/dL AST 17 (17-59) U/L ALT 30 (0-50) U/L Alkaline Phosphatase 121 (38-126) U/L Serum Total Protein 7.1 (6.3-8.2) g/dL Albumin 3.7 (3.5-5.0) g/dL Amylase 30 (30-110) U/L Lipase 212 (23-300) U/L Ur Collection Type Urine Color (YELLOW) Urine Appearance (CLEAR) Urine pH (5-6) Ur Specific [place] (1.005-1.025) Urine Protein (Negative) Urine Ketones (NEGATIVE) Urine Blood (0-5) Jamel/ul Urine Nitrite (NEGATIVE) Urine Bilirubin (NEGATIVE) Urine Urobilinogen (0-1) mg/dL Ur Leukocyte Esterase (NEGATIVE) Urine Culture Reflexed (NO) Urine Glucose (NEGATIVE) mg/dL Urine Opiates Level NEGATIVE (NEGATIVE) Ur Methadone NEGATIVE (NEGATIVE) Urine Barbiturates NEGATIVE (NEGATIVE) Ur Phencyclidine (PCP) NEGATIVE (NEGATIVE) Urine Amphetamine NEGATIVE (NEGATIVE) U Benzodiazepine Level NEGATIVE (NEGATIVE) Urine Cocaine NEGATIVE (NEGATIVE) Urine Marijuana (THC) NEGATIVE (NEGATIVE) Specimen Received 11/15/17 11/15/17 Range/Units 18:00 18:00 WBC (4.0-10.5) K/mm3 RBC (4.1-5.6) M/mm3 Hgb (12.5-18.0) gm/dl Hct (42-50) % MCV (78-100) fl MCH (26-32) pg MCHC (32-36) g/dl RDW (11.5-14.0) % Plt Count (150-450) K/mm3 MPV (6-9.5) fl Absolute Granulocytes (1.4-6.9) Sodium (137-145) mmol/L Potassium (3.5-5.1) mmol/L Chloride (98-107) mmol/L Carbon Dioxide (22-30) mmol/L Anion Gap (5-15) MEQ/L BUN (9-20) mg/dL Creatinine (0.66-1.25) mg/dL Estimated GFR ML/MIN Glucose (74-106) mg/dL Lactic Acid 1.1 (0.4-2.0) Calcium (8.4-10.2) mg/dL Total Bilirubin (0.2-1.3) mg/dL AST (17-59) U/L ALT (0-50) U/L Alkaline Phosphatase (38-126) U/L Serum Total Protein (6.3-8.2) g/dL Albumin (3.5-5.0) g/dL Amylase (30-110) U/L Lipase (23-300) U/L Ur Collection Type VOID Urine Color YELLOW (YELLOW) Urine Appearance CLEAR (CLEAR) Urine pH 0 (5-6) Ur Specific [place] 1.010 (1.005-1.025) Urine Protein NEGATIVE (Negative) Urine Ketones SMALL (NEGATIVE) Urine Blood NEGATIVE (0-5) Jamel/ul Urine Nitrite NEGATIVE (NEGATIVE) Urine Bilirubin NEGATIVE (NEGATIVE) Urine Urobilinogen NORMAL (0-1) mg/dL Ur Leukocyte Esterase NEGATIVE (NEGATIVE) Urine Culture Reflexed NO (NO) Urine Glucose 1000 (NEGATIVE) mg/dL Urine Opiates Level (NEGATIVE) Ur Methadone (NEGATIVE) Urine Barbiturates (NEGATIVE) Ur Phencyclidine (PCP) (NEGATIVE) Urine Amphetamine (NEGATIVE) U Benzodiazepine Level (NEGATIVE) Urine Cocaine (NEGATIVE) Urine Marijuana (THC) (NEGATIVE) Specimen Received 11/15/171814 <SHADI ARANA - Last Filed: 11/15/17 19:06> - Progress Progress: improved, pain not gone completely, re-examined Counseled pt/family regarding: lab results, diagnosis, need for follow-up, rad results <SAVANNA GALLARDO - Last Filed: 11/15/17 20:14> - Progress Progress Note: 11/15/17 20:07 pt re examined. no acute abdominal exam. pt states he is feeling much better. no further n/v. pain better but not completely gone. pt prefers to go home. pts temp, wbc, amylase and lipase are normal. ct scan abd/pelvis shows mod recurrent pancreatitis without abscess or fluid collection. i think it its reasonable to d/c to home. (SAVANNA GALLARDO) <SHADI ARANA - Last Filed: 11/15/17 19:06> - Departure Time of Disposition: 20:10 Departure Disposition: Home Critical Care Time: No <SAVANNA GALLARDO - Last Filed: 11/15/17 20:14> - Departure Clinical Impression: Pancreatitis, chronic, Type 2 diabetes mellitus, Hypertriglyceridemia Condition: Stable Referrals: SONIA MAY [Primary Care Provider] - Additional Instructions: drink plenty of clear liquids over next 12 o 24 hours before advancing diet. return to ER if symptoms worsen. call Dr. May on Sunday for further instructions. avoid fatty, greasy spicy foods. Prescriptions: Hydrocodone/APAP 5/325 [[place] 5/325 mg] 1 each PO Q6H PRN PRN #10 tablet MDD 4 tablets PRN Reason: Pain Ondansetron HCl [Zofran] 4 mg PO TID PRN #10 tablet PRN Reason: Nausea/Vomiting
[2017-11-15 18:14] LABS: Granulocyte Absolute (ANC) 6.95 (1.4-6.9); Hematocrit 44.4 % (42-50); Hemoglobin 18.8 gm/dl (12.5-18.0); Mean Corpuscular Hemoglobin 35.1 pg (26-32); Mean Corpuscular Hgb Concent. 42.3 g/dl (32-36); Mean Platelet Volume 11.4 fl (6-9.5); Platelet Count 162 K/mm3 (150-450); Red Blood Count 5.35 M/mm3 (4.1-5.6); Red Cell Distribution Width 12.7 % (11.5-14.0); White Blood Count 10.3 K/mm3 (4.0-10.5)
[2017-11-15 18:24] LABS: Appearance CLEAR (CLEAR); Bilirubin NEGATIVE (NEGATIVE); Blood NEGATIVE Ery/ul (0-5); Glucose 1000 mg/dL (NEGATIVE); Ketones SMALL (NEGATIVE); Leukocyte Esterase NEGATIVE (NEGATIVE); Nitrite NEGATIVE (NEGATIVE); Ph 0 (5-6); Protein,Urine Dip NEGATIVE (Negative); Urobilinogen NORMAL mg/dL (0-1)
[2017-11-15 18:34] LABS: ALBUMIN 3.7 g/dL (3.5-5.0); ALKALINE PHOSPHATASE 121 U/L (38-126); AMYLASE 30 U/L (30-110); ANION GAP 19.4 MEQ/L (5-15); BLOOD UREA NITROGEN 13 mg/dL (9-20); CHLORIDE 102 mmol/L (98-107); Calcium 8.1 mg/dL (8.4-10.2); Carbon Dioxide 18 mmol/L (22-30); Creatinine 1 0.57 mg/dL (0.66-1.25); Glucose 164 mg/dL (74-106); LIPASE 212 U/L (23-300); Potassium 3.7 mmol/L (3.5-5.1); SGOT/AST 17 U/L (17-59); SGPT/ALT 30 U/L (0-50); SODIUM 136 mmol/L (137-145); Total Protein 7.1 g/dL (6.3-8.2)
[2017-11-15 18:38] LABS: Amphetamine,Urine NEGATIVE (NEGATIVE); Barbiturate,Urine NEGATIVE (NEGATIVE); Benzodiazepine,Urine NEGATIVE (NEGATIVE); Cocaine,Urine NEGATIVE (NEGATIVE); Methadone,Urine NEGATIVE (NEGATIVE); Opiate,Urine NEGATIVE (NEGATIVE); PCP,Urine NEGATIVE (NEGATIVE); THC,Urine NEGATIVE (NEGATIVE)
[2017-11-15] MEDS ORDERED: Hydromorphone 1 mg/ml Ampule IV ONE (19:48)
[2017-11-15] MEDS ORDERED: DILAUDID 2 MG INJECTION ONE (19:54)
[2017-11-15 20:06] LABS: Eosinophil 2 % (0.00-3.0); Lymphocytes 22 % (24-44); Metamyelocyte 1 %; Monocyte 2 % (0.0-12.0); Neutrophils 73 % (36.-66.); Platelet Estimate NORMAL (NORMAL); Total Cells Counted 100
[2017-11-15 20:42] VITALS: BP 142/83; PULSE 77; O2SAT 95
--- NOTE | 2017-11-16 09:27 | XRAY ---
Indication: Right abdominal pain. History pancreatitis. Multiple contiguous axial images obtained through the abdomen and pelvis using 80 cc Isovue 370 contrast only Comparison: June 03, 2017. Lung bases demonstrates minimal bibasilar dependent atelectasis. No infiltrate or effusion. Heart is not enlarged. Majority of the pancreas again demonstrates mild/moderate peripancreatic stranding favoring acute pancreatitis. No walled off fluid collection or free air. Stable diffuse fatty liver. Spleen is enlarged today measuring 14.9 cm in greatest dimension. Noncontrasted stomach and bowel loops appear nonobstructed. Normal appendix. There is now mild diffuse scattered colonic fecal debris throughout. Stable minimal sigmoid diverticulosis. Remaining liver, gallbladder, pancreas, spleen, adrenal glands, kidneys, ureters, bladder, and aorta appear unremarkable. No pathologic retroperitoneal lymphadenopathy. Osseous structures intact again with minimal degenerative changes throughout the spine. Stable small bilateral fatty inguinal hernias. Impression: 1. Recurrent acute pancreatitis as detailed. 2. Again incidental fatty liver, splenomegaly, sigmoid diverticulosis, and bilateral fatty inguinal hernias. CT DI 22.30
== END 2017-11-15 20:43 | disposition home or self-care (01) ==
LOC: ED 17:12
DX: K86.1 Other chronic pancreatitis (principal); E78.1 Pure hyperglyceridemia; E11.9 Type 2 diabetes mellitus without complications; Z79.4 Long term (current) use of insulin; Z79.899 Other long term (current) drug therapy
CPT/HCPCS: 36000; 36415; 74177; 80053; 80307; 81002; 82150; 83605; 83690; 85025; 96360; 96361; 96374; 96375; 99284; J1170; J2405; J3010

== ENCOUNTER 2019-03-02 20:59 | Emergency (ER) | payer BC ==
--- NOTE | 2019-03-02 21:07 | ERPHSYRPT ---
- History of Present Illness Time Seen by Provider: 03/02/19 21:07 Historian: patient Exam Limitations: no limitations Physician History: 48 y/o diabetic white male with h/o recurrent pancreatitis has been out of his insulin/diabetic meds for over a month. he does not have a pcp at this time and he has an appointment with his set up person on Mar 14. 6 days ago he noticed mild epigastric abd pain. denies vomiting and denies diarrhea. abd pain worsened 3 days ago. Timing/Duration: day(s) (6), worse (over last 3 days) Abdominal Pain Onset Location: epigastric Pain Radiation: no radiation Severity of Pain-Max: moderate Severity of Pain-Current: mild Associated Symptoms: loss of appetite, No chest pain, No diarrhea, No nausea, No vomiting Previous symptoms: same symptoms as today Allergies/Adverse Reactions: No Known Drug Allergies Allergy (Verified 03/02/19 21:36) Home Medications: Alprazolam 0.5 mg [xanAX 0.5 MG] 0.5 mg PO DAILY PRN PRN 06/03/17 [History ] Fenofibrate Nanocrystallized [Fenofibrate] 145 mg PO DAILY 06/03/17 [History] Insulin Aspart [NovoLOG Insulin] 100 unit SQ TID 06/03/17 [History] Insulin Detemir [Levemir] 60 unit SQ BID 06/03/17 [History] Lisinopril 10 mg PO DAILY 06/03/17 [History] Atorvastatin Calcium 40 mg PO DAILY 06/04/17 [History] Cyclobenzaprine HCl 10 mg [Cyclobenzaprine 10 MG] 10 mg PO DAILY PRN PRN 06/04/17 [History] Naproxen Sodium 220 mg [Aleve 220 MG] 220 mg PO BID PRN PRN 06/04/17 [ History] Hx Tetanus, Diphtheria Vaccination/Date Given: No Hx Influenza Vaccination/Date Given: No Hx Pneumococcal Vaccination/Date Given: No - Review of Systems Constitutional: No Symptoms Eyes: No Symptoms Ears, Nose, & Throat: No Symptoms Respiratory: No Symptoms Cardiac: No Symptoms Abdominal/Gastrointestinal: Abdominal Pain, Nausea, No Vomiting, No Diarrhea Genitourinary Symptoms: No Symptoms Musculoskeletal: No Symptoms Skin: No Symptoms Neurological: No Symptoms Psychological: No Symptoms Endocrine: No Symptoms Hematologic/Lymphatic: No Symptoms Immunological/Allergic: No Symptoms All Other Systems: Reviewed and Negative - Past Medical History Pertinent Past Medical History: Yes Neurological History: No Pertinent History ENT History: No Pertinent History Cardiac History: No Pertinent History Respiratory History: No Pertinent History Endocrine Medical History: Diabetes Type II Musculoskeletal History: Other GI Medical History: Hernia, Pancreatitis History: No Pertinent History Psycho-Social History: No Pertinent History Male Reproductive Disorders: No Pertinent History Other Medical History: 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 - Past Surgical History Past Surgical History: Yes Neuro Surgical History: No Pertinent History Respiratory: No Pertinent History Gastrointestinal: No Pertinent History Genitourinary: No Pertinent History Musculoskeletal: Orthopedic Surgery Male Surgical History: No Pertinent History Other Surgical History: Surgery R foot, fxs - Social History Smoking Status: Former smoker Exposure to second hand smoke: No Drug Use: none Patient Lives Alone: No - Nursing Vital Signs Nursing Vital Signs: Initial Vital Signs Temperature 98.1 F 03/02/19 21:00 Pulse Rate 102 H 03/02/19 21:00 Respiratory Rate 18 03/02/19 21:00 Blood Pressure 146/89 03/02/19 21:00 O2 Sat by Pulse Oximetry 98 03/02/19 21:00 Pain Scale Pain Intensity 5 - Physical Exam General Appearance: mild distress, alert, anxiety Eye Exam: PERRL/EOMI Ears, Nose, Throat Exam: normal ENT inspection, moist mucous membranes Neck Exam: normal inspection, non-tender, supple, full range of motion Respiratory Exam: normal breath sounds, lungs clear, airway intact, No chest tenderness, No respiratory distress Cardiovascular Exam: regular rate/rhythm, normal heart sounds, normal peripheral pulses Gastrointestinal/Abdomen Exam: soft, tenderness (epigastric), guarding, No normal bowel sounds, No rebound Rectal Exam: not done Back Exam: normal inspection, normal range of motion, No CVA tenderness, No vertebral tenderness Extremity Exam: normal inspection, normal range of motion, pelvis stable Neurologic Exam: alert, oriented x 3, cooperative, 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 Skin Exam: normal color, warm, dry Lymphatic Exam: No adenopathy SpO2 Interpretation: normal O2 Delivery: Room Air - Course Nursing assessment & vital signs reviewed: Yes Ordered Tests: Active Orders 24 hr Category Date Time Status Clean Catch Urine Specimen STAT Care 03/02/19 21:41 Active IV Insertion STAT Care 03/02/19 21:41 Active ABDOMEN AND PELVIS W/0 CONTRAS [CT] Stat Exams 03/02/19 21:41 Taken AMYLASE Stat Lab 03/02/19 22:02 Completed CBC W DIFF Stat Lab 03/02/19 22:02 Completed CMP Stat Lab 03/02/19 22:02 Completed LIPASE Stat Lab 03/02/19 22:02 Completed Lactic Acid Stat Lab 03/02/19 21:41 Completed Manual Differential NC Stat Lab 03/02/19 22:02 Completed UA W/RFX UR CULTURE Stat Lab 03/02/19 22:10 Completed Urine Triage Profile Stat Lab 03/02/19 22:10 Completed VENOUS BLOOD GAS Stat Lab 03/02/19 21:41 Completed Medication Summary Generic Name Dose Route Start Last Admin Trade Name Freq PRN Reason Stop Dose Admin Sodium Chloride 1,000 mls @ 999 mls/hr 03/03/19 00:22 03/03/19 00:29 Sodium Chloride 0.9% 1000 Ml IV 03/03/19 01:22 999 mls/hr .Q1H1M STA Administration Discontinued Medications Generic Name Dose Route Start Last Admin Trade Name Freq PRN Reason Stop Dose Admin Hydromorphone HCl 1 mg 03/02/19 21:41 03/02/19 22:16 Hydromorphone 1 Mg/Ml Ampule IV 03/02/19 21:42 1 mg STAT ONE Administration Hydromorphone HCl Confirm 03/02/19 22:01 Hydromorphone 1 Mg/Ml Ampule Administered 03/02/19 22:02 Dose 1 mg .ROUTE .STK-MED ONE Sodium Chloride 1,000 mls @ 999 mls/hr 03/02/19 21:41 03/03/19 00:01 Sodium Chloride 0.9% 1000 Ml IV 03/02/19 22:41 Infused .Q1H1M STA Infusion Sodium Chloride Confirm 03/02/19 22:02 Sodium Chloride 0.9% 1000 Ml Administered 03/02/19 22:03 Dose 1,000 mls @ ud .ROUTE .STK-MED ONE Sodium Chloride 1,000 mls @ 999 mls/hr 03/02/19 22:58 03/02/19 23:23 Sodium Chloride 0.9% 1000 Ml IV 03/02/19 23:58 999 mls/hr .Q1H1M STA Administration Sodium Chloride Confirm 03/02/19 23:17 Sodium Chloride 0.9% 1000 Ml Administered 03/02/19 23:18 Dose 1,000 mls @ ud .ROUTE .STK-MED ONE Sodium Chloride Confirm 03/03/19 00:26 Sodium Chloride 0.9% 1000 Ml Administered 03/03/19 00:27 Dose 1,000 mls @ ud .ROUTE .STK-MED ONE Ondansetron HCl 4 mg 03/02/19 21:41 03/02/19 22:13 Zofran 4 Mg/2 Ml Vial IV 03/02/19 21:42 4 mg STAT ONE Administration Ondansetron HCl Confirm 03/02/19 22:01 Zofran 4 Mg/2 Ml Vial Administered 03/02/19 22:02 Dose 4 mg .ROUTE .STK-MED ONE Lab/Rad Data: Laboratory Result Diagrams 03/02/19 22:02 03/02/19 22:02 Laboratory Results 03/02/19 03/02/19 03/02/19 Range/Units 22:10 22:10 22:02 WBC (4.0-10.5) K/mm3 RBC (4.1-5.6) M/mm3 Hgb (12.5-18.0) gm/dl Hct (42-50) % MCV (78-100) fl MCH (26-32) pg MCHC (32-36) g/dl RDW (11.5-14.0) % Plt Count (150-450) K/mm3 MPV (6-9.5) fl Segmented Neutrophils (36.-66.) % Band Neutrophils (0.0-2.0) % Lymphocytes (Manual) (24-44) % Monocytes (Manual) (0.0-12.0) % Eosinophils (Manual) (0.00-3.0) % Platelet Estimate (NORMAL) RBC Morphology pO2/FiO2 Ratio % VBG pH (7.32-7.42) VBG pCO2 at Pat Temp (42-55) mm/Hg VBG pO2 at Pat Temp (25-40) mm/Hg VBG HCO3 (22-28) meq/L VBG O2 Sat (Brie) (95-100) VBG Base Excess (-2.0-2.0) VBG Hemoglobin VBG Carboxyhemoglobin (0.0-6.9) % T HGB POC Potassium (3.5-5.1) Sodium 135 L (137-145) mmol/L Potassium 4.5 (3.5-5.1) mmol/L Chloride 100 (98-107) mmol/L Carbon Dioxide [employer] Anion Gap 26.4 H (5-15) MEQ/L BUN 14 (9-20) mg/dL Creatinine 0.48 L (0.66-1.25) mg/dL Estimated GFR > 60.0 ML/MIN Glucose 314 H (74-106) mg/dL Lactic Acid (0.4-2.0) Calcium 9.4 (8.4-10.2) mg/dL Total Bilirubin 0.70 (0.2-1.3) mg/dL AST 18 (17-59) U/L ALT 22 (0-50) U/L Alkaline Phosphatase 126 (38-126) U/L Serum Total Protein 8.3 H (6.3-8.2) g/dL Albumin 4.0 (3.5-5.0) g/dL Amylase 75 (30-110) U/L Lipase 319 H (23-300) U/L Urine Color YELLOW (YELLOW) Urine Appearance CLEAR (CLEAR) Urine pH 5.0 (5-6) Ur Specific [place] 1.028 (1.005-1.025) Urine Protein NEGATIVE (Negative) Urine Ketones MODERATE (NEGATIVE) Urine Blood SMALL (0-5) Jamel/ul Urine Nitrite NEGATIVE (NEGATIVE) Urine Bilirubin NEGATIVE (NEGATIVE) Urine Urobilinogen NEGATIVE (0-1) mg/dL Ur Leukocyte Esterase NEGATIVE (NEGATIVE) Urine WBC (Auto) NONE (0-5) /HPF Urine RBC (Auto) NONE (0-2) /HPF U Epithel Cells (Auto) NONE (FEW) /HPF Urine Bacteria (Auto) NONE (NEGATIVE) /HPF Urine Mucus (Auto) SLIGHT (NEGATIVE) /HPF Urine Culture Reflexed NO (NO) Urine Glucose >=500 (NEGATIVE) mg/dL Urine Opiates Level NEGATIVE (NEGATIVE) Ur Methadone NEGATIVE (NEGATIVE) Urine Barbiturates NEGATIVE (NEGATIVE) Ur Phencyclidine (PCP) NEGATIVE (NEGATIVE) Urine Amphetamine NEGATIVE (NEGATIVE) U Benzodiazepine Level NEGATIVE (NEGATIVE) Urine Cocaine NEGATIVE (NEGATIVE) Urine Marijuana (THC) POSITIVE (NEGATIVE) 1103/02/19 03/02/19 Range/Units 22:02 21:41 21:41 WBC 11.9 H (4.0-10.5) K/mm3 RBC 5.43 (4.1-5.6) M/mm3 Hgb 18.6 H (12.5-18.0) gm/dl Hct 44.7 (42-50) % MCV 82.3 (78-100) fl MCH 34.2 H (26-32) pg MCHC 41.6 H (32-36) g/dl RDW 12.6 (11.5-14.0) % Plt Count 173 (150-450) K/mm3 MPV 11.1 H (6-9.5) fl Segmented Neutrophils 69 H (36.-66.) % Band Neutrophils 10 H (0.0-2.0) % Lymphocytes (Manual) 16 L (24-44) % Monocytes (Manual) 3 (0.0-12.0) % Eosinophils (Manual) 2 (0.00-3.0) % Platelet Estimate NORMAL (NORMAL) RBC Morphology NORMAL pO2/FiO2 Ratio 21.0 % VBG pH 7.30 L (7.32-7.42) VBG pCO2 at Pat Temp 38 L (42-55) mm/Hg VBG pO2 at Pat Temp 27 (25-40) mm/Hg VBG HCO3 18.7 L (22-28) meq/L VBG O2 Sat (Brie) 54.2 L (95-100) VBG Base Excess -7.1 L (-2.0-2.0) VBG Hemoglobin 15.6 VBG Carboxyhemoglobin 4.2 (0.0-6.9) % T HGB POC Potassium 4.4 (3.5-5.1) Sodium (137-145) mmol/L Potassium (3.5-5.1) mmol/L Chloride (98-107) mmol/L Carbon Dioxide Anion Gap (5-15) MEQ/L BUN (9-20) mg/dL Creatinine (0.66-1.25) mg/dL Estimated GFR ML/MIN Glucose (74-106) mg/dL Lactic Acid 1.1 (0.4-2.0) Calcium (8.4-10.2) mg/dL Total Bilirubin (0.2-1.3) mg/dL AST (17-59) U/L ALT (0-50) U/L Alkaline Phosphatase (38-126) U/L Serum Total Protein (6.3-8.2) g/dL Albumin (3.5-5.0) g/dL Amylase (30-110) U/L Lipase (23-300) U/L Urine Color (YELLOW) Urine Appearance (CLEAR) Urine pH (5-6) Ur Specific [place] (1.005-1.025) Urine Protein (Negative) Urine Ketones (NEGATIVE) Urine Blood (0-5) Jamel/ul Urine Nitrite (NEGATIVE) Urine Bilirubin (NEGATIVE) Urine Urobilinogen (0-1) mg/dL Ur Leukocyte Esterase (NEGATIVE) Urine WBC (Auto) (0-5) /HPF Urine RBC (Auto) (0-2) /HPF U Epithel Cells (Auto) (FEW) /HPF Urine Bacteria (Auto) (NEGATIVE) /HPF Urine Mucus (Auto) (NEGATIVE) /HPF Urine Culture Reflexed (NO) Urine Glucose (NEGATIVE) mg/dL Urine Opiates Level (NEGATIVE) Ur Methadone (NEGATIVE) Urine Barbiturates (NEGATIVE) Ur Phencyclidine (PCP) (NEGATIVE) Urine Amphetamine (NEGATIVE) U Benzodiazepine Level (NEGATIVE) Urine Cocaine (NEGATIVE) Urine Marijuana (THC) (NEGATIVE) - Progress Progress: improved Progress Note: 03/03/19 00:10 ct abd/pelvis-mild/mod inflammation surrounding head of pancreas. minimal bowel wall thickening 3rd portion of duodenum 03/03/19 00:39 pt states he is feeling much better. he does not want to be transferred or admitted. he wants another liter of ns then be discharged. i d/w him the risks benefits and alternatives. he wants to go home. he will sign an ama/refusal of tx form Counseled pt/family regarding: lab results, diagnosis, need for follow-up, rad results - Departure Departure Disposition: Home Clinical Impression: DKA (diabetic ketoacidoses), Pancreatitis Condition: Stable Critical Care Time: Yes Critical Care Time(excluding separately billable procedures): Critical 30-74 mins Referrals: DOCTOR,NO FAMILY [Primary Care Provider] - Additional Instructions: drink plenty of fluids. avoid fatty greasy spicy foods. call your endoncrinologist and primary doctor today for further management
[2019-03-02] MEDS ORDERED: Zofran 4 MG/2 ML VIAL IV ONE (21:41)
[2019-03-02] MEDS ORDERED: Hydromorphone 1 mg/ml Ampule IV ONE (21:41)
[2019-03-02] MEDS ORDERED: Sodium Chloride 0.9% 1000 ML 1,000 ML IV STA ×2 (21:41→22:58)
[2019-03-02] MEDS ORDERED: Zofran 4 MG/2 ML VIAL ONE (22:01)
[2019-03-02] MEDS ORDERED: Hydromorphone 1 mg/ml Ampule ONE (22:01)
[2019-03-02] MEDS ORDERED: Sodium Chloride 0.9% 1000 ML 1,000 ML ONE ×2 (22:02→23:17)
[2019-03-02 22:06] LABS: Hematocrit 44.7 % (42-50); Hemoglobin 18.6 gm/dl (12.5-18.0); Mean Cell Volume 82.3 fl (78-100); Mean Platelet Volume 11.1 fl (6-9.5); Platelet Count 173 K/mm3 (150-450); Red Blood Count 5.43 M/mm3 (4.1-5.6); Red Cell Distribution Width 12.6 % (11.5-14.0); White Blood Count 11.9 K/mm3 (4.0-10.5)
[2019-03-02 22:10] LABS: Mean Corpuscular Hemoglobin 34.2 pg (26-32)
[2019-03-02 22:11] LABS: Mean Corpuscular Hgb Concent. 41.6 g/dl (32-36)
[2019-03-02 22:17] LABS: ALKALINE PHOSPHATASE 126 U/L (38-126); AMYLASE 75 U/L (30-110); ANION GAP 26.4 MEQ/L (5-15); BLOOD UREA NITROGEN 14 mg/dL (9-20); CHLORIDE 100 mmol/L (98-107); Calcium 9.4 mg/dL (8.4-10.2); Creatinine 1 0.48 mg/dL (0.66-1.25); Glucose 314 mg/dL (74-106); LIPASE 319 U/L (23-300); Potassium 4.5 mmol/L (3.5-5.1); SGOT/AST 18 U/L (17-59); SGPT/ALT 22 U/L (0-50); SODIUM 135 mmol/L (137-145); Total Protein 8.3 g/dL (6.3-8.2)
[2019-03-02 22:44] LABS: VBG BASE EXCESS -7.1 (-2.0-2.0); VBG CARBOXYHEMOGLOBIN 4.2 % T HGB (0.0-6.9); VBG HCO3- 18.7 meq/L (22-28); VBG HEMOGLOBIN 15.6; VBG O2 SATURATION 54.2 (95-100); VBG POTASSIUM 4.4 (3.5-5.1); VBG pH 7.3 (7.32-7.42)
[2019-03-02 22:46] LABS: Appearance CLEAR (CLEAR); Bilirubin NEGATIVE (NEGATIVE); Blood SMALL Ery/ul (0-5); Glucose >=500 mg/dL (NEGATIVE); Ketones MODERATE (NEGATIVE); Leukocyte Esterase NEGATIVE (NEGATIVE); Mucus SLIGHT /HPF (NEGATIVE); Nitrite NEGATIVE (NEGATIVE); Protein,Urine Dip NEGATIVE (Negative); Specific Gravity 1.028 (1.005-1.025); Urobilinogen NEGATIVE mg/dL (0-1)
[2019-03-02 22:59] LABS: Amphetamine,Urine NEGATIVE (NEGATIVE); Barbiturate,Urine NEGATIVE (NEGATIVE); Benzodiazepine,Urine NEGATIVE (NEGATIVE); Cocaine,Urine NEGATIVE (NEGATIVE); Methadone,Urine NEGATIVE (NEGATIVE); Opiate,Urine NEGATIVE (NEGATIVE); PCP,Urine NEGATIVE (NEGATIVE); THC,Urine POSITIVE (NEGATIVE)
[2019-03-02 23:03] LABS: BAND 10 % (0.0-2.0); Eosinophil 2 % (0.00-3.0); Lymphocytes 16 % (24-44); Monocyte 3 % (0.0-12.0); Neutrophils 69 % (36.-66.); Total Cells Counted 100
[2019-03-02 23:04] LABS: Platelet Estimate NORMAL (NORMAL)
[2019-03-03] MEDS ORDERED: Sodium Chloride 0.9% 1000 ML 1,000 ML IV STA (00:22)
[2019-03-03] MEDS ORDERED: Sodium Chloride 0.9% 1000 ML 1,000 ML ONE (00:26)
[2019-03-03] MEDS ORDERED: NORCO 5/325 MG PO ONE (01:18)
[2019-03-03] MEDS ORDERED: NORCO 5/325 MG ONE (01:23)
[2019-03-03 01:49] VITALS: BP 149/84; PULSE 107; O2SAT 97
--- NOTE | 2019-03-03 09:05 | XRAY ---
Indication: Upper abdomen/back pain with nausea. History of pancreatitis. Multiple contiguous axial images obtained through the abdomen and pelvis without contrast as ordered. Comparison: November 13, 2017. Lung bases are clear. Heart is not enlarged. Stomach is distended with food/fluid. Noncontrasted stomach and bowel loops appear nonobstructed. Normal appendix. There is again mild diffuse scattered colonic fecal debris throughout. Head and uncinate portion of the pancreas demonstrates mild peripancreatic stranding favoring pancreatitis. No free fluid/air. Again mild diffuse fatty liver. Spleen remains enlarged today measuring 15.2 cm. Remaining liver, gallbladder, pancreas, spleen, adrenal glands, kidneys, ureters, bladder, and aorta appear unremarkable for noncontrast exam. Osseous structures intact again with minimal degenerative changes throughout the thoracolumbar spine. Stable small bilateral fatty inguinal hernias. Impression: 1. Mild pancreatitis as detailed. No complications. 2. Again incidental fecal stasis, fatty liver, splenomegaly, and bilateral fatty inguinal hernias. Comment: Preliminary interpretation was made by [facility]. No critical discrepancy. CT DI 13.77
== END 2019-03-03 02:00 | disposition home or self-care (01) ==
LOC: ED 20:59
DX: E11.10 Type 2 diabetes mellitus with ketoacidosis without coma (principal); K85.90 Acute pancreatitis without necrosis or infection, unspecified; Z79.4 Long term (current) use of insulin; Z79.899 Other long term (current) drug therapy
CPT/HCPCS: 36000; 36415; 74176; 80053; 80307; 81001; 82150; 82805; 83605; 83690; 85025; 96360; 96361; 96374; 96375; 99284; J1170; J2405; A9270-GY

== ENCOUNTER 2021-02-22 05:57 | Day surgery (SDC) | payer BC, OTHER ==
[2021-02-22] MEDS ORDERED: Lactated Ringers 1,000 ML IV SCH (06:00)
[2021-02-22] MEDS ORDERED: DIPRIVAN 200 MG/20 ML IV ONE ×4 (06:51→08:23)
[2021-02-22 09:26] VITALS: O2SAT 98
[2021-02-22 09:28] VITALS: BP 136/78; PULSE 72
--- NOTE | 2021-02-22 11:54 | OP ---
SURGERY DATE/TIME: 02/22/2021 0752 PREOPERATIVE DIAGNOSIS: Screening exam. POSTOPERATIVE DIAGNOSIS: Normal colon but marginal prep. PROCEDURE: Colonoscopy. SURGEON: Dr. Pretty. ANESTHESIA: MAC. Medications given by anesthesia department. HISTORY: The patient is a 50-year-old white male presenting now for screening colonoscopy. He was appraised of the risks of the procedure including the risk of perforation, phlebitis, untoward reaction to medication, bleeding and missed lesions. The patient verbalized his understanding and desired to have the procedure performed. DESCRIPTION OF PROCEDURE: The patient was given the medications by the anesthesia department. He had continuous pulse oximetry, ECG monitoring, intermittent blood pressure monitoring and tidal CO2 monitoring during the examination. The patient was placed in the left lateral decubitus position. A digital rectal examination was performed and revealed normal anal sphincter tone, no masses and normal prostate. The flexible Olympus pediatric colonoscope was used to intubate the rectum. A view of the colon was developed to the ascending colon. We were unable to get into the cecum. The patient had marginal prep and a long tortuous colon and despite multiple manipulations we were unable to get into the cecum and on withdrawal revealed no lesions. The scope was removed from the patient who tolerated the procedure well and was sent back to OP recovery in good condition. The prep was noted to be fair at times poor.
== END 2021-02-22 09:30 | disposition home or self-care (01) ==
LOC: SDC 05:57
PROVIDERS: ATTEND Family Medicine
DX: Z12.11 Encounter for screening for malignant neoplasm of colon (principal); E11.9 Type 2 diabetes mellitus without complications; Z79.899 Other long term (current) drug therapy
CPT/HCPCS: 82947; J2704

== ENCOUNTER 2022-09-28 14:30 | Emergency (ER) | payer OTHER ==
[2022-09-28] MEDS ORDERED: Sodium Chloride 0.9% 1000 ML 1,000 ML IV STA (15:10)
[2022-09-28] MEDS ORDERED: Sodium Chloride 0.9% 1000 ML 1,000 ML ONE (15:25)
--- NOTE | 2022-09-28 15:30 | ERPHSYRPT ---
- History of Present Illness Historian: patient Exam Limitations: no limitations Patient Subjective Stated Complaint: pt states I think I have a spider bite to my left neck. pt states that he was recently in [place] for a hunting trip and pulled 3 ticks off his back. Triage Nursing Assessment: pt ambulated into the er; pt is axo x4; c/o insect bite to left neck; area to left neck is red, warm, swollen; c/o N/V; c/o headache and bodyaches; skin PDW; vitals wnl; no visible respiratory distress Physician History: 52 yo wm w fever/N/V/D x2 days. Pt has chills/headache/mild generalized abdominal pain. He pulled several ticks off his back lasr week and has a small erythematous area L lateral-inferior neck. He denies cough/coryza/dysuria/hem aturia/focal weakness. Timing/Duration: other (2 days) Activities at Onset: rest Quality: aching Abdominal Pain Onset Location: generalized abdomen Pain Radiation: no radiation Severity of Pain-Max: mild Severity of Pain-Current: mild Modifying Factors: Improves With: nothing Associated Symptoms: denies symptoms, diarrhea, fever/chills, headache, nausea, vomiting Previous symptoms: no prior history Allergies/Adverse Reactions: No Known Drug Allergies Allergy (Verified 09/28/22 14:40) Home Medications: Syringe,Insul U-500,Ndl,0.5ML [Insulin Syringe U-500] 1 each MC UD 02/21/21 [History] Buspirone HCl 5 mg [Buspar 5 mg] 10 mg PO DAILY 09/28/22 [History] Fluticasone/Vilanterol [Fluticasone-Vilanterol 100-25] 1 puff IH DAILY 09/28/22 [History] Hx Tetanus, Diphtheria Vaccination/Date Given: No Hx Influenza Vaccination/Date Given: No Hx Pneumococcal Vaccination/Date Given: No Travel Risk - International Travel Have you traveled outside of the country in past 3 weeks: No - Coronavirus Screening Are you exhibiting any of the following symptoms?: Yes Symptoms: Headaches/Body Aches/Fatigue Close contact with a COVID-19 positive Pt in past 14-21 Days: No - Vaccine Status Have you recieved a Covid-19 vaccination: Yes Replacer: Unknown - Vaccination Dates Dates if Unknown: unknown - Review of Systems Constitutional: No Symptoms, Fever, Chills Eyes: No Symptoms Ears, Nose, & Throat: No Symptoms Respiratory: No Symptoms Cardiac: No Symptoms Abdominal/Gastrointestinal: No Symptoms, Abdominal Pain, Nausea, Vomiting, Diarrhea Genitourinary Symptoms: No Symptoms Musculoskeletal: No Symptoms Skin: No Symptoms Neurological: No Symptoms, Headache Psychological: No Symptoms Endocrine: No Symptoms Hematologic/Lymphatic: No Symptoms Immunological/Allergic: No Symptoms - Past Medical History Pertinent Past Medical History: Yes Neurological History: No Pertinent History ENT History: No Pertinent History Cardiac History: No Pertinent History Respiratory History: COPD Endocrine Medical History: Diabetes Type II Musculoskeletal History: Other GI Medical History: Hernia, Pancreatitis History: No Pertinent History Psycho-Social History: No Pertinent History Male Reproductive Disorders: No Pertinent History Other Medical History: 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 - Past Surgical History Past Surgical History: Yes Neuro Surgical History: No Pertinent History Cardiac: No Pertinent History Respiratory: No Pertinent History Gastrointestinal: No Pertinent History Genitourinary: No Pertinent History Musculoskeletal: Orthopedic Surgery Male Surgical History: No Pertinent History Other Surgical History: Surgery R foot, fxs - Social History Smoking Status: Former smoker Exposure to second hand smoke: No Drug Use: none Patient Lives Alone: No - Nursing Vital Signs Nursing Vital Signs: Initial Vital Signs Temperature 97.5 F 09/28/22 14:42 Pulse Rate 85 09/28/22 14:42 Respiratory Rate 18 09/28/22 14:42 Blood Pressure 139/78 09/28/22 14:42 O2 Sat by Pulse Oximetry 95 09/28/22 14:42 Pain Scale Pain Intensity 0 Mildly hypertensive - Physical Exam General Appearance: no apparent distress Eye Exam: PERRL/EOMI, eyes nml inspection Ears, Nose, Throat Exam: normal ENT inspection, TMs normal, pharynx normal, moist mucous membranes Neck Exam: other (Small erythematous area L lateral, inferior neck), No meningismus, No mass, No Brudzinski, No Kernig's, No carotid bruit Respiratory Exam: normal breath sounds, lungs clear, airway intact, No r espiratory distress Cardiovascular Exam: regular rate/rhythm, normal heart sounds, normal peripheral pulses, capillary refill <2 sec, No murmur Gastrointestinal/Abdomen Exam: soft, normal bowel sounds, tenderness (Mild diffuse TTP) Back Exam: normal inspection, normal range of motion, No CVA tenderness, No vertebral tenderness Extremity Exam: normal inspection, normal range of motion Neurologic Exam: alert, oriented x 3, cooperative, paper steamer II-XII nml as tested, normal mood/affect, nml cerebellar function, nml station & gait, sensation nml Skin Exam: normal color, warm, dry Lymphatic Exam: No adenopathy SpO2 Interpretation: normal SpO2: 95 O2 Delivery: Room Air - Course Nursing assessment & vital signs reviewed: Yes - Radiology Exams Chest X-ray Interpretation: Discussed w/ radiologist (L base atelectasis vs infiltrate) - CT Exams Abdomen/Pelvis CT Interpretation: Discussed w/radiologist (jejunal-ileal wall thickening favoring enteritis) Ordered Tests: Medication Summary Discontinued Medications Generic Name Dose Route Start Last Admin Trade Name Freq PRN Reason Stop Dose Admin Sodium Chloride 1,000 mls @ 999 mls/hr 09/28/22 15:10 09/28/22 16:38 Sodium Chloride 0.9% 1000 Ml IV 09/28/22 16:10 Infused .Q1H1M STA Infusion Sodium Chloride Confirm 09/28/22 15:25 Sodium Chloride 0.9% 1000 Ml Administered 09/28/22 15:26 Dose 1,000 mls @ ud .ROUTE .STK-MED ONE Ceftriaxone Sodium/Dextrose 1 g in 50 mls @ 100 mls/hr 09/28/22 17:22 09/28/22 17:24 Rocephin 1 Gm-D5w 50 Ml Bag IV 09/28/22 17:51 100 mls/hr STAT STA 100 mls/hr Administration Ceftriaxone Sodium/Dextrose Confirm 09/28/22 17:23 Rocephin 1 Gm-D5w 50 Ml Bag Administered 09/28/22 17:24 Dose 1 g in 50 mls @ ud IV .STK-MED ONE Ketorolac Tromethamine 15 mg 09/28/22 15:57 09/28/22 16:01 Ketorolac Tromethamine 30 Mg/Ml Inj IV 09/28/22 15:58 15 mg STAT ONE Administration Ketorolac Tromethamine Confirm 09/28/22 16:00 Ketorolac Tromethamine 30 Mg/Ml Inj Administered 09/28/22 16:01 Dose 30 mg .ROUTE .STK-MED ONE Lab/Rad Data: Laboratory Result Diagrams 09/28/22 15:10 09/28/22 15:10 Laboratory Results 09/28/22 09/28/22 09/28/22 Range/Units 16:59 15:20 15:10 WBC (4.0-10.5) x10^3/uL RBC (4.1-5.6) x10^6/uL Hgb (12.5-18.0) g/dL Hct (42-50) % MCV (78-100) fL MCH (26-32) pg MCHC (32-36) g/dL RDW (11.5-14.0) % Plt Count (150-450) x10^3/uL MPV (7.5-11.0) fL Gran % (36.0-66.0) % Immature Gran % (Auto) (0.00-0.4) % Nucleat RBC Rel Count (0.00-0.1) % Eos # (Auto) (0-0.5) x10^3/uL Immature Gran # (Auto) (0.00-0.03) x10^3u/L Absolute Lymphs (auto) (1.0-4.6) x10^3/uL Absolute Monos (auto) (0.0-1.3) x10^3/uL Absolute Nucleated RBC (0.00-0.01) x10^3u/L Lymphocytes % (24.0-44.0) % Monocytes % (0.0-12.0) % Eosinophils % (0.00-5.0) % Basophils % (0.0-0.4) % Absolute Granulocytes (1.4-6.9) x10^3/uL Basophils # (0-0.4) x10^3/uL Sodium (137-145) mmol/L Potassium (3.5-5.1) mmol/L Chloride (98-107) mmol/L Carbon Dioxide (22-30) mmol/L Anion Gap (5-15) MEQ/L BUN (9-20) mg/dL Creatinine (0.66-1.25) mg/dL Estimated GFR ML/MIN Glucose (74-106) mg/dL Lactic Acid 1.1 (0.4-2.0) Calcium (8.4-10.2) mg/dL Total Bilirubin (0.2-1.3) mg/dL AST (17-59) U/L ALT (0-50) U/L Alkaline Phosphatase (38-126) U/L Serum Total Protein (6.3-8.2) g/dL Albumin (3.5-5.0) g/dL Urine Color Yellow (Yellow) Urine Appearance Clear (Clear) Urine pH 6.0 (4.6-8.0) Ur Specific [place] 1.020 (1.005-1.030) Urine Protein 30 (Negative) Urine Glucose (UA) Negative (Negative) mg/dL Urine Ketones Trace A (Negative) Urine Blood Trace (Negative) Urine Nitrite Negative (Negative) Urine Bilirubin Negative (Negative) Urine Urobilinogen 1.0 A (0.2) mg/dL Ur Leukocyte Esterase Negative (Negative) U Hyaline Cast (Auto) NONE SEEN (0-2) /LPF Urine Microscopic RBC 3-5 (0-5) /HPF Urine Microscopic WBC 0-2 (0-5) /HPF Ur Epithelial Cells None Seen (None Seen) /HPF Urine Bacteria None Seen (None Seen) /HPF Urine Culture Reflexed NO (NO) Influenza Type A Ag NEGATIVE (NEGATIVE) Influenza Type B Ag NEGATIVE (NEGATIVE) RSV (PCR) NEGATIVE (NEGATIVE) SARS-CoV-2 (PCR) NEGATIVE (NEGATIVE) 09/28/22 09/28/22 Range/Units 15:10 15:10 WBC 6.6 (4.0-10.5) x10^3/uL RBC 5.32 (4.1-5.6) x10^6/uL Hgb 15.8 (12.5-18.0) g/dL Hct 46.0 (42-50) % MCV 86.5 (78-100) fL MCH 29.7 (26-32) pg MCHC 34.3 (32-36) g/dL RDW 12.6 (11.5-14.0) % Plt Count 149 L (150-450) x10^3/uL MPV 9.5 (7.5-11.0) fL Gran % 80.3 H (36.0-66.0) % Immature Gran % (Auto) 0.3 (0.00-0.4) % Nucleat RBC Rel Count 0.0 (0.00-0.1) % Eos # (Auto) 0 (0-0.5) x10^3/uL Immature Gran # (Auto) 0.02 (0.00-0.03) x10^3u/L Absolute Lymphs (auto) 0.66 L (1.0-4.6) x10^3/uL Absolute Monos (auto) 0.60 (0.0-1.3) x10^3/uL Absolute Nucleated RBC 0.00 (0.00-0.01) x10^3u/L Lymphocytes % 9.9 L (24.0-44.0) % Monocytes % 9.0 (0.0-12.0) % Eosinophils % 0.0 (0.00-5.0) % Basophils % 0.5 (0.0-0.4) % Absolute Granulocytes 5.33 (1.4-6.9) x10^3/uL Basophils # 0.03 (0-0.4) x10^3/uL Sodium 134 L (137-145) mmol/L Potassium 3.9 (3.5-5.1) mmol/L Chloride 96 L (98-107) mmol/L Carbon Dioxide 26 (22-30) mmol/L Anion Gap 15.4 H (5-15) MEQ/L BUN 14 (9-20) mg/dL Creatinine 0.66 (0.66-1.25) mg/dL Estimated GFR > 60.0 ML/MIN Glucose 110 H (74-106) mg/dL Lactic Acid (0.4-2.0) Calcium 9.5 (8.4-10.2) mg/dL Total Bilirubin 0.90 (0.2-1.3) mg/dL AST 65 H (17-59) U/L ALT 68 H (0-50) U/L Alkaline Phosphatase 72 (38-126) U/L Serum Total Protein 8.2 (6.3-8.2) g/dL Albumin 4.4 (3.5-5.0) g/dL Urine Color (Yellow) Urine Appearance (Clear) Urine pH (4.6-8.0) Ur Specific [place] (1.005-1.030) Urine Protein (Negative) Urine Glucose (UA) (Negative) mg/dL Urine Ketones (Negative) Urine Blood (Negative) Urine Nitrite (Negative) Urine Bilirubin (Negative) Urine Urobilinogen (0.2) mg/dL Ur Leukocyte Esterase (Negative) U Hyaline Cast (Auto) (0-2) /LPF Urine Microscopic RBC (0-5) /HPF Urine Microscopic WBC (0-5) /HPF Ur Epithelial Cells (None Seen) /HPF Urine Bacteria (None Seen) /HPF Urine Culture Reflexed (NO) Influenza Type A Ag (NEGATIVE) Influenza Type B Ag (NEGATIVE) RSV (PCR) (NEGATIVE) SARS-CoV-2 (PCR) (NEGATIVE) - Progress Progress: improved Progress Note: 09/28/22 17:27 Nursing note and vital signs reviewed No food or housing insecurities noted 15mg IV Toradol w improvement in symptoms Pt appears to have a viral gastroenteritis, most likely caused by the Norovirus 1L NS bolus No fever in ER No nuchal rigidity in ER/Serial neuro exams negative Myalgias much improved after 15mg IV Toradol 1gm IV Rocephin Dr. Stafford called in Doxycycline for pt Pt either has a local reaction to insect bite/sting L neck or early cellulitis, so Doxycycline ok and will have pt continue 09/28/22 17:31 Counseled pt/family regarding: lab results, diagnosis, need for follow-up, rad results Medical Desision Making - Diagnostic Testing Radiological Interpretation: Reviewed by me - Risk of complications The pt has a mod risk of morbidity or mortality based on: Need for prescription drug management - Departure Departure Disposition: Home Clinical Impression: Enteritis, Local reaction to insect sting Condition: Stable Critical Care Time: No Referrals: VENTURA STAFFORD MD [Primary Care Provider] - Follow up/PCP as directed Instructions: Viral Gastroenteritis in Adults, Insect Bites and Stings (DC) Additional Instructions: Fluids Motrin/Tylenol Continue with Doxycycline prescribed by Dr. Stafford Return to ER for worsening of symptoms Follow up with Dr. Stafford
[2022-09-28 15:32] LABS: Absolute Neutrophil Ct (ANC) 5.33 x10^3/uL (1.4-6.9); BASOPHIL % 0.5 % (0.0-0.4); Basophil (Absolute #) 0.03 x10^3/uL (0-0.4); Eosinophil (Absolute #) 0 x10^3/uL (0-0.5); Hemoglobin 15.8 g/dL (12.5-18.0); IMMATURE GRAN # 0.02 x10^3u/L (0.00-0.03); IMMATURE GRAN % 0.3 % (0.00-0.4); Lymphocyte (Absolute #) 0.66 x10^3/uL (1.0-4.6); Lymphocytes % 9.9 % (24.0-44.0); Mean Cell Volume 86.5 fL (78-100); Mean Corpuscular Hemoglobin 29.7 pg (26-32); Mean Corpuscular Hgb Concent. 34.3 g/dL (32-36); Mean Platelet Volume 9.5 fL (7.5-11.0); Neutrophil % 80.3 % (36.0-66.0); Platelet Count 149 x10^3/uL (150-450); Red Blood Count 5.32 x10^6/uL (4.1-5.6); Red Cell Distribution Width 12.6 % (11.5-14.0); White Blood Count 6.6 x10^3/uL (4.0-10.5)
[2022-09-28 15:41] LABS: ALBUMIN 4.4 g/dL (3.5-5.0); ALKALINE PHOSPHATASE 72 U/L (38-126); ANION GAP 15.4 MEQ/L (5-15); BLOOD UREA NITROGEN 14 mg/dL (9-20); CHLORIDE 96 mmol/L (98-107); Calcium 9.5 mg/dL (8.4-10.2); Carbon Dioxide 26 mmol/L (22-30); Creatinine 1 0.66 mg/dL (0.66-1.25); EST GLOMERULAR FILTRATION RATE > 60.0 ML/MIN; Glucose 110 mg/dL (74-106); Potassium 3.9 mmol/L (3.5-5.1); SGOT/AST 65 U/L (17-59); SGPT/ALT 68 U/L (0-50); SODIUM 134 mmol/L (137-145); Total Protein 8.2 g/dL (6.3-8.2)
[2022-09-28] MEDS ORDERED: TORAdol 30 mg Injection IV ONE (15:57)
[2022-09-28] MEDS ORDERED: TORAdol 30 mg Injection ONE (16:00)
[2022-09-28 16:07] LABS: INFLUENZA A NEGATIVE (NEGATIVE); INFLUENZA B NEGATIVE (NEGATIVE); RESPIRATORY SYNCTIAL VIRUS NEGATIVE (NEGATIVE); SARS-CoV-2 Xpert Express NEGATIVE (NEGATIVE)
--- NOTE | 2022-09-28 16:34 | XRAY ---
Indication: Fever. Comparison: May 04, 2022 Portable chest demonstrates new minimal left base stranding infiltrate versus atelectasis. Remaining heart and lungs unremarkable. Bony thorax intact again with mild degenerative changes and old left rib fractures.
[2022-09-28 17:07] LABS: Appearance Clear (Clear); Bacteria None Seen /HPF (None Seen); Bilirubin Negative (Negative); Blood Trace (Negative); Epithelial Cells None Seen /HPF (None Seen); Glucose, Urine Negative (Negative); Hyaline Casts NONE SEEN /LPF (0-2); Ketones Trace (Negative); Leukocyte Esterase Negative (Negative); Nitrite Negative (Negative); Protein,Urine Dip 30 (Negative); WBC 0-2 /HPF (0-5)
[2022-09-28 17:09] LABS: ADD URINE CULTURE? NO (NO)
--- NOTE | 2022-09-28 17:18 | XRAY ---
Indication: Abdomen pain, nausea, and vomiting. Multiple contiguous axial images obtained through the abdomen and pelvis using 80 cc Isovue 370 contrast. Comparison: March 02, 2019 Lung bases demonstrates minimal left base subsegmental atelectasis/scarring. No infiltrate or effusion. Heart not enlarged. Noncontrasted stomach and bowel loops appear nonobstructed. Several jejunal and lesser degree ileal bowel loops are now mildly fluid distended with mild wall thickening favoring enteritis. Normal appendix. Again 22.6 cm fatty hepatomegaly and 15.3 cm splenomegaly. No free fluid/air. Remaining liver, gallbladder, pancreas, spleen, adrenal glands, kidneys, ureters, bladder, and aorta are unremarkable. No pathologic retroperitoneal lymphadenopathy. Osseous structures intact again with minimal degenerative changes throughout the spine. Stable small bilateral fatty inguinal hernias. Impression: 1. New CT findings favor mild enteritis. 2. Again chronic findings including fatty hepatomegaly, splenomegaly, and bilateral fatty inguinal hernias.
[2022-09-28] MEDS ORDERED: ROCEPHIN 1 Gm-D5w 50 ml Bag** 1 G/50 ML IVPB IV STA (17:22)
[2022-09-28] MEDS ORDERED: ROCEPHIN 1 Gm-D5w 50 ml Bag** 1 G/50 ML IVPB IV ONE (17:23)
[2022-09-28 17:30] VITALS: PULSE 88
[2022-09-28 17:55] VITALS: BP 111/70
[2022-10-01 07:20] VITALS: O2SAT 95
== END 2022-09-28 17:55 | disposition home or self-care (01) ==
LOC: ED 14:30
DX: K52.9 Noninfective gastroenteritis and colitis, unspecified (principal); S10.96XA Insect bite of unspecified part of neck, initial encounter; W57.XXXA Bitten or stung by nonvenomous insect and other nonvenomous arthropods, initial encounter; R50.9 Fever, unspecified; R11.2 Nausea with vomiting, unspecified; R51.9 Headache, unspecified; R10.84 Generalized abdominal pain; E11.9 Type 2 diabetes mellitus without complications; Z79.4 Long term (current) use of insulin; Z79.899 Other long term (current) drug therapy
CPT/HCPCS: 0241U; 36000; 36415; 71045; 74177; 80053; 81001; 83605; 85025; 86618; 96360; 96365; 96374; 99284; J0696; J1885

== ENCOUNTER 2023-02-13 10:22 | Day surgery (SDC) | payer OTHER ==
[2023-02-12 17:19] LABS: Hematocrit 46.3 % (42-50); Hemoglobin 16.1 g/dL (12.5-18.0); Mean Cell Volume 86.9 fL (78-100); Mean Corpuscular Hemoglobin 30.2 pg (26-32); Mean Corpuscular Hgb Concent. 34.8 g/dL (32-36); Mean Platelet Volume 11.1 fL (7.5-11.0); Platelet Count 202 x10^3/uL (150-450); Red Blood Count 5.33 x10^6/uL (4.1-5.6); Red Cell Distribution Width 13.4 % (11.5-14.0); White Blood Count 9.3 x10^3/uL (4.0-10.5)
[2023-02-12 18:27] LABS: ALBUMIN 4.5 g/dL (3.5-5.0); ALKALINE PHOSPHATASE 93 U/L (38-126); ANION GAP 12.3 MEQ/L (5-15); BLOOD UREA NITROGEN 16 mg/dL (9-20); CHLORIDE 97 mmol/L (98-107); Calcium 9.5 mg/dL (8.4-10.2); Carbon Dioxide 29 mmol/L (22-30); Creatinine 1 0.62 mg/dL (0.66-1.25); EST GLOMERULAR FILTRATION RATE > 60.0 ML/MIN; Glucose 238 mg/dL (74-106); Potassium 4.4 mmol/L (3.5-5.1); SGOT/AST 64 U/L (17-59); SGPT/ALT 71 U/L (0-50); SODIUM 134 mmol/L (137-145); Total Protein 7.9 g/dL (6.3-8.2)
[~2023-02-13 10:22] MED LIST: Marcaine Mpf 0.5% Vial 30 Ml ONE; Xylocaine 1% Vial 30 ML PF IJ ONE
[2023-02-13] MEDS ORDERED: Lactated Ringers 1,000 ML IV ONE (10:44)
[2023-02-13] MEDS ORDERED: Lactated Ringers 1,000 ML IV SCH (11:00)
[2023-02-13] MEDS ORDERED: CEFAZOLIN 2 GM-D5W BAG** 2 GM/50 ML ML IV SCH (11:00)
[2023-02-13 11:25] LABS: INR 0.99 (0.8-3.0); PROTIME 10.8 SECONDS (9.4-12.5)
[2023-02-13] MEDS ORDERED: Xylocaine-Mpf 2% 5 Ml Vial ONE (11:39)
[2023-02-13] MEDS ORDERED: Versed 2 MG/2 ML Injection ONE (11:39)
[2023-02-13] MEDS ORDERED: DIPRIVAN 200 MG/20 ML IV ONE (11:39)
[2023-02-13] MEDS ORDERED: SUBLIMAZE 100 MCG/2 ML ONE ×2 (11:40→13:45)
--- NOTE | 2023-02-13 14:10 | XRAY ---
Indication: Right 2nd metatarsal floating osteotomy. Intraoperative fluoroscopy provided for 23 seconds. Single digital spot image submitted for interpretation demonstrates osteotomy distal shaft 2nd metatarsal. Correlate with intraoperative findings/report.
[2023-02-13 14:16] VITALS: PULSE 70; RESP 16
[2023-02-13 14:29] VITALS: BP 138/94; TEMP 98.6; O2SAT 94
--- NOTE | 2023-02-14 13:54 | XRAY ---
23 seconds of fluoroscopy was used in surgery for a right 2nd metatarsal floating osteotomy.
--- NOTE | 2023-02-15 08:12 | OP ---
SURGERY DATE/TIME: 02/13/2023 1330 PREOPERATIVE DIAGNOSES: 1) Right foot pain. 2) Diabetic foot ulcer. 3) Accessory ossicle subsecond metatarsal head. 4) Metatarsal deformity. POSTOPERATIVE DIAGNOSES: 1) Right foot pain. 2) Diabetic foot ulcer. 3) Accessory ossicle subsecond metatarsal head. 4) Metatarsal deformity. PROCEDURE: Floating metatarsal head osteotomy with debridement of subsecond metatarsal head diabetic foot ulcer. SURGEON: Kvng Blue DPM. [employer] RECOV[employer] WORKER: None. ANESTHESIA: Monitored anesthesia care plus intraoperative block consisting of 10 cc of a 1:1 mixture of 1% lidocaine plain and 0.5% bupivacaine plain injected in a metatarsal block-type fashion. HEMOSTASIS: Pressure dressing. ESTIMATED BLOOD LOSS: 5 cc. MATERIALS: 3-0 Nylon. INJECTABLES: 10 cc of 1:1 mixture of 1% lidocaine plain and 0.5% bupivacaine plain. INDICATION FOR SURGERY: Yousuf is a very pleasant 52-year-old male well known to my service for a diabetic foot ulcer that started in approximately September 2022. The patient indicates that his weight bearing status has increased for work and as a result he has had ulcerations to this foot before. His diabetes is relatively under control and vascular status was intact so we proceeded with conservative wound care. The patient has responded to wound care however he would like to proceed with definitive method of alleviating pressure to this area and since the wound is not entirely healed, this will prevent recurrence of this issue. Discussion was held in regards to options for surgical intervention which at this time we decided to proceed with only the metatarsal head floating osteotomy. As a result, we decided to leave the accessory ossicle which is relatively large in size. However with the metatarsal cut, we will likely be able to off load the area of the ulceration. This also gives us the opportunity to weight bear immediately after the procedure where as if we decided to proceed with excision of the accessory ossicle and closure of the wound, we would likely have to proceed with nonweight bearing period and the patient would have delayed return to work. The patient understands this and is eager to proceed. The patient understands all risks, complications and benefits of surgical intervention at this time including but not limited to infection, hematoma, seroma, and possibility of delayed wound healing, nonwound healing and possible need for surgical intervention at a later date. Plenty of time was allowed for the patient to ask questions which were answered to his apparent satisfaction. No guarantees were provided as to the outcome. At this time we decided to proceed with surgical intervention. DESCRIPTION OF PROCEDURE AND FINDINGS: The patient is brought into the OR and placed on the OR table in the supine position. At this time anesthesia was provided until the patient was mildly sedated. The right lower extremity was prepped and draped in the typical sterile fashion and lowered onto the surgical field where images were taken of the second metatarsal head. This correlated directly with the ulceration at the plantar aspect of the second metatarsal head which at this time debridement took place. Predebridement the ulceration measured to be 2 x 4 x 3 mm. Postdebridement the measurements were 4 x 6 x 4 mm. This was cleansed with copious amounts of sterile saline. Following this from the dorsal aspect of the foot, [place] was utilized to identify the dorsomedial aspect of the neck of the metatarsal. A small transverse incision was made utilizing a 15 blade which the [place] was then utilized to free up any soft tissue attachments from the surgical neck. An 18 mm sagittal saw was then introduced into the deficit and utilized to resect the metatarsal head at the neck allowing it to float. Final images were taken on C-arm demonstrating complete fracture of the metatarsal head. At this time, copious amounts of sterile saline were utilized to flush the surgical site. 3-0 Nylon then was utilized to coapt the skin edges and a dressing consisting of Betadine, Adaptic, 4x4, Kerlix and PRICE was applied to the patient's right lower extremity. The patient was then reversed from anesthesia and returned to the postoperative anesthesia care unit with vital signs stable and vascular status intact. The patient handled the anesthesia as well as the procedure without significant complication. Postoperative orders as indicated in the patient's discharge chart.
== END 2023-02-13 14:55 | disposition home or self-care (01) ==
LOC: SDC 10:22
PROVIDERS: ATTEND Podiatrist Foot & Ankle Surgery
DX: E11.621 Type 2 diabetes mellitus with foot ulcer (principal); M79.671 Pain in right foot; M21.6X1 Other acquired deformities of right foot; Z79.899 Other long term (current) drug therapy
CPT/HCPCS: 11042; 28308; 36415; 73630; 76000; 80053; 85027; 85610; 85730; J0690; J2001; J2250; J2704; J3010